=== PATIENT | male | born 1940 | race Caucasian/White ===

== ENCOUNTER → 2019-01-24 | Outpatient (CLI) | payer MEDICARE, OTHER ==
--- NOTE | 2019-01-24 17:18 | CT ---
EXAMINATION TYPE: CT brain wo con DATE OF EXAM: 01/24/2019 HISTORY: Stat H/C Pt was hit by tree branch yesterday. Dizzy since CT DLP: 1147 mGycm. Automated Exposure Control for Dose Reduction was Utilized. TECHNIQUE: CT scan of the head is performed without contrast. COMPARISON: None. FINDINGS: There is no acute intracranial hemorrhage or midline shift identified. There is diffuse v entricular and sulcal prominence consistent with diffuse age-related cerebral atrophy. There is low- attenuation in the periventricular white matter consistent with chronic small vessel ischemic change. The globes are intact and the visualized sinuses are clear. The calvarium is intact. No suspiciou s opacification mastoid air cells is present. IMPRESSION: No acute intracranial hemorrhage or midline shift. There is moderate diffuse age-relate d cerebral atrophy and mild chronic small vessel ischemic change noted.
== END | disposition home or self-care (01) ==
LOC: RADCTMAIN 16:14
PROVIDERS: ATTEND Internal Medicine
DX: G31.1 Senile degeneration of brain, not elsewhere classified (principal); I67.82 Cerebral ischemia; Z79.01 Long term (current) use of anticoagulants
CPT/HCPCS: 70450

== ENCOUNTER → 2019-06-13 | Outpatient (CLI) | payer MEDICARE, OTHER ==
[2019-06-13 13:31] LABS: Potassium 4.9 mmol/L (3.5-5.1)
[2019-06-13 13:34] LABS: HCT 52.2 % (39.0-53.0); HGB 17.2 gm/dL (13.0-17.5); MCH 33.1 pg (25.0-35.0); MCHC 32.9 g/dL (31.0-37.0); MCV 100.8 fL (80.0-100.0); Macrocytosis Slight; Platelet Count 153 k/uL (150-450); RBC 5.18 m/uL (4.30-5.90); RDW 13.7 % (11.5-15.5); WBC 6.5 k/uL (3.8-10.6)
== END | disposition home or self-care (01) ==
LOC: LABPAT 12:10
PROVIDERS: ATTEND Internal Medicine Interventional Cardiology
DX: Z01.812 Encounter for preprocedural laboratory examination (principal); I25.10 Atherosclerotic heart disease of native coronary artery without angina pectoris
CPT/HCPCS: 36415; 80051; 82565; 84520; 85027

== ENCOUNTER 2019-06-14 09:02 | Day surgery (SDC) | payer MEDICARE, OTHER ==
[2019-06-10 10:12] VITALS: BMI 30.4
[~2019-06-14 09:02] MED LIST: ALPRAZolam 0.25 MG TAB PO PRN; ALPRAZolam 0.5 MG TAB PO PRN; ASPIRIN 325 MG TAB PO STA; ATORVASTATIN 80 MG TAB PO STA; NITROGLYCERIN SL TABS 0.4 MG TAB SUBLINGUAL PRN; SODIUM CHLORIDE 0.9% 1,000 ML in EMPTY BAG 1 BAG IV ONE
[2019-06-14 09:33] VITALS: RESP 16; TEMP 97.9
[2019-06-14] MEDS ORDERED: SODIUM CHLORIDE 0.9% 1,000 ML IV ONE (09:42)
[2019-06-14 10:13] LABS: INR 1.4 (<1.2); Prothrombin Time 14.5 sec (9.0-12.0)
[2019-06-14] MEDS ORDERED: HEPARIN SODIUM 1,000 UN/ML (10ML VL) ONE (11:53)
[2019-06-14] MEDS ORDERED: LIDOCAINE 1% INJ 10MG/ML (20 ML MDV) ONE (11:53)
[2019-06-14] MEDS ORDERED: VERAPAMIL 2.5 MG/ML 2 ML AMP ONE (11:53)
[2019-06-14] MEDS ORDERED: MIDAZOLAM 2 MG/2 ML VIAL IVP ONE (12:00)
[2019-06-14] MEDS ORDERED: LIDOCAINE 1% INJ 10MG/ML (20 ML MDV) SQ ONE (12:04)
[2019-06-14] MEDS: VERAPAMIL SYRINGE (5 MG/10 ML) INTRAARTER ONE ×2 (12:08→12:20)
[2019-06-14] MEDS ORDERED: HEPARIN SODIUM 1,000 UN/ML (10ML VL) IV ONE (12:13)
[2019-06-14] MEDS ORDERED: IOPAMIDOL-370 100ML BTL INJ ONE (12:20)
[2019-06-14] MEDS ORDERED: SODIUM CHLORIDE 0.9% 1,000 ML IV SCH (12:30)
--- NOTE | 2019-06-14 13:26 | CC ---
CARDIAC CATHETERIZATION REPORT DATE OF SERVICE: 06/14/2019 PROCEDURE: Left heart catheterization and coronary angiography. PERFORMED BY: Dr. Maria D Reyes. ANESTHESIA: Moderate conscious sedation time was 22 minutes. CLINICAL INFORMATION: Mr. Price is a 78-year-old gentleman with a known history of CAD as well as chronic atrial fib and some cardiomyopathy type picture. His ejection fraction in the range of 45% with a global decrease in contractility. Some of this may be related to alcohol use. He had stenting of mid LAD performed in 2003 with a bare metal stent. Because of increasing symptoms of angina and equivocal stress test with some inferior defect, he was advised coronary angiography after due discussion regarding risks, benefits, and options. PROCEDURE NOTE: Under local anesthesia and strict aseptic precautions, a 6-Divehi introducer was placed in the right radial artery. Using a JL3.5 and JR4 catheter, I performed coronary angiography and the same catheter was used to check LV pressures. LV gram was not performed. The sheath was taken out and TR band applied as per protocol with good saturation of fingers of the right hand. CARDIAC CATHETERIZATION FINDINGS: The left ventricle end-diastolic pressure was about 16 mmHg without any gradient across aortic valve. CORONARY ANGIOGRAPHY FINDINGS: RIGHT CORONARY ARTERY: Technically a dominant vessel that has about a 35% to 40% narrowing in the midportion. No other significant disease. It is smooth narrowing. Distally, it bifurcates into PDA and PLV, both of which supply a sizable amount of myocardium. No significant disease in the dominant RCA. LEFT MAIN CORONARY ARTERY: Short patent disease-free vessel that bifurcates into LAD and circumflex. LEFT ANTERIOR DESCENDING CORONARY ARTERY: This vessel has a stent in the proximal portion just after the first septal branch. The vessel then trifurcates into 3 different branches. No significant disease in the LAD. Stented segment is widely patent with remarkably good flow. LEFT POSTERIOR CIRCUMFLEX CORONARY ARTERY: Technically nondominant vessel gives off a single first obtuse marginal that runs laterally and then the vessel runs in the AV groove and gives of secondary branches. There are minor irregularities of no more than 30%. Nondominant circumflex is free of significant disease. LV-gram was not performed. FINAL IMPRESSION: This patient has a right dominant system, 40% mid RCA disease, smooth narrowing, large vessel, large caliber and distribution. No other significant disease. Elevated filling pressures at 16 mmHg without any gradient across aortic valve. Left system has minor irregularities and the previously stented proximal/mid LAD is widely patent with remarkably good flow. A 30% circumflex disease, nondominant vessel. RECOMMENDATIONS: I am recommending continued medical therapy with risk factor modification. Findings were discussed with the patient and . OSCAR / SINDHU: [id number] /
[2019-06-14 17:07] VITALS: BP 136/75; PULSE 50
== END 2019-06-14 18:10 | disposition home or self-care (01) ==
LOC: CATHCVL 09:02
PROVIDERS: ATTEND Internal Medicine Interventional Cardiology
DX: I25.10 Atherosclerotic heart disease of native coronary artery without angina pectoris (principal); I48.20 Chronic atrial fibrillation, unspecified; I42.0 Dilated cardiomyopathy; I27.20 Pulmonary hypertension, unspecified; I10 Essential (primary) hypertension; E78.00 Pure hypercholesterolemia, unspecified; G47.33 Obstructive sleep apnea (adult) (pediatric); E78.5 Hyperlipidemia, unspecified; J44.9 Chronic obstructive pulmonary disease, unspecified; F10.20 Alcohol dependence, uncomplicated; Z87.891 Personal history of nicotine dependence; Z79.01 Long term (current) use of anticoagulants; Z79.899 Other long term (current) drug therapy; Z99.89 Dependence on other enabling machines and devices; Z95.5 Presence of coronary angioplasty implant and graft
CPT/HCPCS: 93458; 85610; C1769 ×2; C1894; J2250; J2001; J1644; Q9967

== ENCOUNTER → 2020-03-01 | Outpatient (CLI) | payer MEDICARE, OTHER ==
--- NOTE | 2020-03-01 17:43 | XR ---
EXAMINATION: XR chest 2V DATE AND TIME: 03/01/2020 4:52 PM CLINICAL INDICATION: PHH; R06.02 TECHNIQUE: Departmental protocol COMPARISON: None FINDINGS: The lungs are negative for definite acute findings. There is a subtle findings suggesting b ibasilar coarse reticulation throughout the lung bases; this subtle finding likely represents chronic interstitial lung change. The pleural spaces are negative. The cardiac silhouette is borderline enlarged. The remainder of the mediastinal silhouette is unremar kable. The skeletal structures and soft tissues are negative for acute findings. IMPRESSION: No acute radiographic process; should symptoms persist would suggest consideration of follow-up imagi ng assessment.
== END | disposition home or self-care (01) ==
LOC: RAD 16:31
PROVIDERS: ATTEND Internal Medicine
DX: R06.02 Shortness of breath (principal)
CPT/HCPCS: 71046

== ENCOUNTER → 2020-03-02 | Outpatient (CLI) | payer MEDICARE, OTHER | END | disposition home or self-care (01) | LOC: LABWHC1 08:46 | PROVIDERS: ATTEND Internal Medicine | DX: R06.02 Shortness of breath (principal) | CPT/HCPCS: U0003; C9803 ==

== ENCOUNTER → 2020-11-23 | Outpatient (CLI) | payer MEDICARE, OTHER ==
--- NOTE | 2020-11-23 16:25 | US ---
EXAMINATION TYPE: US carotid duplex BILAT DATE OF EXAM: 11/23/2020 COMPARISON: NONE CLINICAL HISTORY: R42 light-headed. Dizziness EXAM MEASUREMENTS: RIGHT: Peak Systolic Velocity (PSV) cm/sec ----- Right CCA: 101.1 ----- Right ICA: 130.2 ----- Right ECA: 127.0 ICA/CCA ratio: 1.3 RIGHT: End Diastole cm/sec ----- Right CCA: 20.4 ----- Right ICA: 17.1 ----- Right ECA: 13.9 LEFT: Peak Systolic Velocity (PSV) cm/sec ----- Left CCA: 136.6 ----- Left ICA: 118.9 ----- Left ECA: 123.7 ICA/CCA ratio: 0.9 LEFT: End Diastole cm/sec ----- Left CCA: 12.3 ----- Left ICA: 28.4 ----- Left ECA: 15.5 VERTEBRALS (direction of flow): Right Vertebral: Antegrade Left Vertebral: Antegrade Rhythm: Arrhythmia There is mild atherosclerotic plaque within the common carotid artery bifurcation and proximal internet sales representative al carotid artery on the right. There is mild atherosclerotic calcification of the left common caroti d artery bifurcation and left internal carotid artery. IMPRESSION: 1. Right: 50-69% stenosis of the right internal carotid artery. There is mild atherosclerotic plaque at the common carotid artery bifurcation and proximal internal carotid artery on the right. This is l ikely on the lower end of this range. 2. Left: Less than 50% stenosis of the left internal carotid artery is seen. There is mild atheroscle rotic plaque of the left common carotid artery bifurcation and left internal carotid artery. Criteria for Assigning % of Stenosis / Diameter reduction (Estimation based on the indirect measurements of the internal carotid artery velocities (ICA PSV). 1. Normal (no stenosis)=ICA PSV < 125 cm/s: ratio < 2.0: ICA EDV<40 cm/s. 2. Less than 50% stenosis=ICA PSV < 125 cm/s: ratio < 2.0: ICA EDV<40 cm/s. 3. 50 to 69% stenosis=ICA PSV of 125 to 230 cm/s: ration 2.0 ? 4.0: ICA EDV 40-100 cm/s. 4. Greater than 70% stenosis to near occlusion= ICA PSV > 230 cm/s: ratio > 4.0: ICA EDV > 100 cm/s. 5. Near occlusion= ICA PSV velocities may be low or undetectable: variable ratio and ICA EDV. 6. Total occlusion=unable to detect flow.
== END | disposition home or self-care (01) ==
LOC: RADUSWWP 15:13
PROVIDERS: ATTEND Internal Medicine
DX: I65.23 Occlusion and stenosis of bilateral carotid arteries (principal)
CPT/HCPCS: 93880

== ENCOUNTER → 2021-05-22 | Outpatient (CLI) | payer MEDICARE, OTHER ==
--- NOTE | 2021-05-23 07:57 | XR ---
EXAMINATION TYPE: XR ankle complete RT DATE OF EXAM: 05/22/2021 COMPARISON: NONE HISTORY: Pain TECHNIQUE: Frontal, lateral and oblique images of the right ankle are obtained. COMPARISON: None. FINDINGS: There is no acute fracture/dislocation evident. The joint spaces appear within normal rodas its. The overlying soft tissue appears unremarkable. IMPRESSION: There is no acute fracture or dislocation seen.
--- NOTE | 2021-05-23 07:58 | XR ---
EXAMINATION TYPE: XR foot complete RT DATE OF EXAM: 05/22/2021 CLINICAL HISTORY: pain TECHNIQUE: Frontal, lateral and oblique images of the right foot are obtained. COMPARISON: None. FINDINGS: There is no acute fracture/dislocation evident. The joint spaces appear within normal rodsa its. The overlying soft tissue appears unremarkable. IMPRESSION: There is no acute fracture or dislocation. ICD 10 NO FRACTURE, INITIAL EVALUATION
--- NOTE | 2021-05-23 07:58 | XR ---
EXAMINATION TYPE: XR tibia fibula RT DATE OF EXAM: 05/22/2021 CLINICAL HISTORY: pain TECHNIQUE: AP and lateral images of the right tibia and fibula are obtained. COMPARISON: None. FINDINGS: There is no acute fracture/dislocation evident. The joint spaces appear within normal rodas its. The overlying soft tissue appears unremarkable. IMPRESSION: There is no acute fracture or dislocation seen. ICD 10 NO FRACTURE, INITIAL EVALUATION
--- NOTE | 2021-05-23 08:10 | XR ---
EXAMINATION TYPE: XR knee 4V RT DATE OF EXAM: 05/22/2021 CLINICAL HISTORY: pain TECHNIQUE: Three views of the right knee are obtained. Patellar sunrise views also submitted. COMPARISON: None. FINDINGS: There is no acute fracture/dislocation. The tri-compartment joint spaces appear within no rmal limits. The overlying soft tissue appears unremarkable. IMPRESSION: There is no acute fracture or dislocation.ICD 10 NO FRACTURE, INITIAL EVALUATION
--- NOTE | 2021-05-23 08:11 | XR ---
EXAMINATION TYPE: XR toes RT DATE OF EXAM: 05/22/2021 COMPARISON: NONE HISTORY: Pain right fourth toe TECHNIQUE: 3 views of the right fourth toe are submitted. FINDINGS: There is a cortical irregularity at the base of the proximal phalanx right fourth toe felt to reflect fracture. IMPRESSION: As above
== END | disposition home or self-care (01) ==
LOC: RADXRMAIN 15:26
PROVIDERS: ATTEND Internal Medicine
DX: S92.511A Displaced fracture of proximal phalanx of right lesser toe(s), initial encounter for closed fracture (principal); M79.604 Pain in right leg; X58.XXXA Exposure to other specified factors, initial encounter

== ENCOUNTER → 2021-10-28 | Outpatient (CLI) | payer MEDICARE, OTHER ==
[2021-10-29 01:00] LABS: HCT 39.8 % (39.6-50.0); HGB 12.8 g/dL (13.0-17.0); MCH 32.2 pg (27.0-32.0); MCHC 32.2 g/dL (32.0-37.0); Mean Platelet Volume 10.8 fL (9.5-12.2); NRBC Per 100 WBC 0 /100 WBCS (0.0-0.0); Platelet Count 153 X 10*3/uL (140-440); RBC 3.98 X 10*6/uL (4.40-5.60); RDW 13.2 % (11.5-14.5); WBC 5.18 X 10*3/uL (4.50-10.00)
[2021-10-29 01:21] LABS: African American GFR (CKD) 72.1 (60.0-200.0); Anion Gap 11.7 mmol/L (10.00-18.00); Blood Urea Nitrogen 20.3 mg/dL (9.0-27.0); Carbon Dioxide 21.3 mmol/L (20.0-27.5); Non-African American GFR(CKD) 62.2 (60.0-200.0); Potassium 4.2 mmol/L (3.5-5.5)
== END | disposition home or self-care (01) ==
LOC: LABPAT 15:34
PROVIDERS: ATTEND Internal Medicine Interventional Cardiology
DX: Z01.812 Encounter for preprocedural laboratory examination (principal); I25.10 Atherosclerotic heart disease of native coronary artery without angina pectoris
CPT/HCPCS: 80051; 82565; 84520; 85027

== ENCOUNTER → 2021-10-30 | Day surgery (SDC) | payer MEDICARE, OTHER ==
[2021-10-29 10:16] VITALS: BMI 30.6
[~2021-10-30] MED LIST changes: +ASPIRIN 325 MG TAB PO ONE; -ASPIRIN 325 MG TAB PO STA; +ATORVASTATIN 10 MG TAB PO SCH; +ATORVASTATIN 80 MG TAB PO ONE; -ATORVASTATIN 80 MG TAB PO STA; +CYANOCOBALAMIN 500 MCG TAB PO SCH; +FUROSEMIDE 20 MG TAB PO PRN; +HEPARIN SODIUM 1,000 UN/ML (10ML VL) ONE; +HEPARIN SODIUM,PORCINE 10,000 UNIT in SODIUM CHLORIDE 0.9% 1,000 ML IRRIGATION PRN; +HEPARIN SODIUM,PORCINE 2,500 UNIT in SODIUM CHLORIDE 0.9% 250 ML IRRIGATION PRN; +IOPAMIDOL-370 100ML BTL INJ ONE; +LIDOCAINE 1% INJ 10MG/ML (20 ML MDV) SQ ONE; +LIDOCAINE 1% PF 10 MG/ML (5 ML AMP) SQ ONE; +METOPROLOL TARTRATE 25 MG TAB PO SCH; +MIDAZOLAM 2 MG/2 ML VIAL IV ONE; +MULTIVITAMINS, THERA 1 EACH TAB PO SCH; +NITROGLYCERIN 1000MCG/10ML SYRINGE INTRACORON ONE; +RX INFO: IV CONTRAST WAS GIVEN 1 EACH MISC MISCELLANE PRN; +SODIUM CHLORIDE 0.9% 1,000 ML IV ONE; +SODIUM CHLORIDE 0.9% 1,000 ML IV SCH; -SODIUM CHLORIDE 0.9% 1,000 ML in EMPTY BAG 1 BAG IV ONE; +SODIUM CHLORIDE 0.9% 1,000 ML in EMPTY BAG 1 BAG IV SCH; +THIAMINE 100 MG TAB PO SCH; +VERAPAMIL 2.5 MG/ML 2 ML AMP ONE; +VIAGRA PO PRN; +WARFARIN 2.5 MG TAB PO SCH; +lisinopriL 10 MG TAB PO SCH
[2021-10-30 09:27] VITALS: TEMP 97.8
[2021-10-30 09:51] LABS: INR 1.5 (<1.2); Prothrombin Time 15.3 sec (9.0-12.0)
--- NOTE | 2021-10-30 12:19 | CC ---
CARDIAC CATHETERIZATION REPORT DATE OF SERVICE: 10/30/2021. PROCEDURE: 1. Left heart catheterization and coronary angiography. 2. IFR measurement of distal RCA lesion. PERFORMED BY: Dr. Maria D Reyes. Moderate conscious sedation time was 45 minutes. Patient was administered Versed. Oxygen saturation, hemodynamics and EKG were monitored closely. CLINICAL INFORMATION: Mr. Israel Price is an 81-year-old gentleman with a known history of CAD, prior LAD PCI in 2004 at [facility] that was patent in 2019. He has hypertension, hyperlipidemia, chronic atrial fibrillation, sleep apnea with CPAP. He has been having symptoms of dizziness, lightheadedness and chest tightness and pressure; increasing shortness of breath of late, raising the possibility of anginal equivalence. He was advised cardiac catheterization after due discussion regarding risks, benefits and options. PROCEDURE NOTE: Under strict aseptic precautions and local anesthesia, I attempted right radial access, but the pulse was rather feeble. I had difficulty threading the wire in and therefore I switched over to the femoral approach. Under strict aseptic precautions and local anesthesia, a 6-Honduran introducer was placed in the right femoral artery using a micropuncture needle technique. Standard Mars catheters were used to perform coronary angiography, and the same right catheter was used to check LV pressure, but LV gram was not performed. Following the coronary angiography, I noted that there was a borderline lesion of about 55% in the distal RCA before it bifurcated into PDA and PLV. This was a dominant RCA. I performed IFR of this using an Omni wire, and IFR was performed as per protocol; IFR was 0.97. Therefore no intervention was performed. The sheath was taken out and manual compression used to secure hemostasis. CARDIAC CATHETERIZATION FINDINGS: The left ventricular end-diastolic pressure was about 12 to 13 mmHg without any gradient across the aortic valve. CORONARY ANGIOGRAPHY FINDINGS: RIGHT CORONARY ARTERY: Dominant vessel. No significant disease in the proximal and mid portion. Distally before bifurcation there is a 55% narrowing, after which the vessel bifurcates into a larger PLV and smaller PDA, both of which supply a sizable amount of myocardium. PDA has mild 30% to 40% disease. Distal RCA has about a 50% to 55% narrowing. LEFT MAIN CORONARY ARTERY: Short, patent disease-free vessel that bifurcates into LAD and circumflex. No significant disease in the left main. LEFT ANTERIOR DESCENDING CORONARY ARTERY: Good-caliber vessel has a proximal/mid stent that is widely patent. Beyond the stent it bifurcates into diagonals and continues as an LAD and also small-caliber vessels. Entire LAD system has minor diffuse irregularities, but the stented segment is widely patent with good flow. Compared to the previous images from 2019, no significant change. LEFT POSTERIOR CIRCUMFLEX CORONARY ARTERY: Nondominant vessel gives off a single large obtuse marginal and continues in the AV groove as a posterolateral branch. No significant disease in the circumflex system other than minor irregularities of less than 30%. LEFT VENTRICULOGRAM: Left ventriculogram was not performed. IFR measurement was performed using a standard protocol with a 6-Honduran guide catheter after giving 4000 units of heparin and intracoronary nitroglycerin. IFR was 0.97. No intervention was performed on the distal RCA lesion. FINAL IMPRESSION: This patient has a right-dominant system, a 55% borderline lesion with a negative FFR in RCA. The left main, LAD and circumflex are free of significant disease. Previously stented mid LAD is widely patent with good flow. Filling pressures are normal. There is no gradient. RECOMMENDATIONS: Continued medical therapy with risk factor modification is advised. Advised smoking cessation. Same medical regimen and Coumadin will be resumed tomorrow. MMODL / IJN: [id number] /
[2021-10-30 16:53] VITALS: BP 142/78
[2021-10-30 17:40] VITALS: PULSE 79; RESP 22
== END ==
LOC: CATHCVL 08:36
PROVIDERS: ATTEND Internal Medicine Interventional Cardiology
DX: I25.10 Atherosclerotic heart disease of native coronary artery without angina pectoris (principal); I48.19 Other persistent atrial fibrillation; I10 Essential (primary) hypertension; G47.33 Obstructive sleep apnea (adult) (pediatric); E78.5 Hyperlipidemia, unspecified; H46.9 Unspecified optic neuritis; G25.0 Essential tremor; E78.00 Pure hypercholesterolemia, unspecified; I27.20 Pulmonary hypertension, unspecified; I42.0 Dilated cardiomyopathy; F10.20 Alcohol dependence, uncomplicated; Z20.822 Contact with and (suspected) exposure to COVID-19; Z95.5 Presence of coronary angioplasty implant and graft; Z79.01 Long term (current) use of anticoagulants; Z79.899 Other long term (current) drug therapy; Z87.891 Personal history of nicotine dependence
CPT/HCPCS: 93571; 93458; 85610; 87635; J2250; J2001 ×2; J1644; Q9967

== ENCOUNTER → 2021-12-26 | Outpatient (CLI) | payer MEDICARE, OTHER ==
--- NOTE | 2021-12-26 14:06 | US ---
EXAMINATION TYPE: US carotid duplex BILAT DATE OF EXAM: 12/26/2021 COMPARISON: 11/2020 CLINICAL HISTORY: I65.21 OCCLUSION AND STENOSIS OF RIGHT CAROTID ART. LIGHTHEADNESS EXAM MEASUREMENTS: RIGHT: Peak Systolic Velocity (PSV) cm/sec ----- Right CCA: 98.1 ----- Right ICA: 105.9 ----- Right ECA: 72.4 ICA/CCA ratio: 1.1 RIGHT: End Diastole cm/sec ----- Right CCA: 25.4 ----- Right ICA: 30.6 ----- Right ECA: 4.2 LEFT: Peak Systolic Velocity (PSV) cm/sec ----- Left CCA: 92.4 ----- Left ICA: 127.1 ----- Left ECA: 105.9 ICA/CCA ratio: 1.4 LEFT: End Diastole cm/sec ----- Left CCA: 17.2 ----- Left ICA: 33.9 ----- Left ECA: 11.2 VERTEBRALS (direction of flow): Right Vertebral: Antegrade Left Vertebral: Antegrade Rhythm: Normal NO SIGNIFICANT STENOSIS SEEN IMPRESSION: 1. Moderate stenosis of left internal carotid artery between 50 and 69%. 2. Mild narrowing of the right internal carotid artery of less than 50%. Criteria for Assigning % of Stenosis / Diameter reduction (Estimation based on the indirect measurements of the internal carotid artery velocities (ICA PSV). 1. Normal (no stenosis)=ICA PSV < 125 cm/s: ratio < 2.0: ICA EDV<40 cm/s. 2. Less than 50% stenosis=ICA PSV < 125 cm/s: ratio < 2.0: ICA EDV<40 cm/s. 3. 50 to 69% stenosis=ICA PSV of 125 to 230 cm/s: ration 2.0 ? 4.0: ICA EDV 40-100 cm/s. 4. Greater than 70% stenosis to near occlusion= ICA PSV > 230 cm/s: ratio > 4.0: ICA EDV > 100 cm/s. 5. Near occlusion= ICA PSV velocities may be low or undetectable: variable ratio and ICA EDV. 6. Total occlusion=unable to detect flow.
== END | disposition home or self-care (01) ==
LOC: RADUSWWP 12:25
PROVIDERS: ATTEND Internal Medicine
DX: I65.21 Occlusion and stenosis of right carotid artery (principal)
CPT/HCPCS: 93880

== ENCOUNTER → 2022-12-30 | Outpatient (CLI) | payer MEDICARE, OTHER ==
--- NOTE | 2022-12-30 13:23 | US ---
EXAMINATION TYPE: US carotid duplex BILAT DATE OF EXAM: 12/30/2022 COMPARISON: US 2021 CLINICAL INDICATION: Male, 82 years old with history of I65.21 STENOSIS OF RT CAROTID ARTERY; TECHNIQUE: Carotid duplex ultrasound examination. Indirect Doppler criteria was utilized. FINDINGS: EXAM MEASUREMENTS: RIGHT: Peak Systolic Velocity (PSV) cm/sec ----- Right CCA: 72.4 ----- Right ICA: 86.8 ----- Right ECA: 76.3 ICA/CCA ratio: 1.2 RIGHT: End Diastole cm/sec ----- Right CCA: 16.9 ----- Right ICA: 23.6 ----- Right ECA: 0.0 LEFT: Peak Systolic Velocity (PSV) cm/sec ----- Left CCA: 77.9 ----- Left ICA: 90.6 ----- Left ECA: 96.8 ICA/CCA ratio: 1.2 LEFT: End Diastole cm/sec ----- Left CCA: 14.5 ----- Left ICA: 22.6 ----- Left ECA: 0.0 VERTEBRALS (direction of flow): Right Vertebral: Antegrade Left Vertebral: Antegrade Rhythm: Arrhythmia No significant stenosis IMPRESSION: Less than 50% stenosis of the bilateral carotid bifurcations. Criteria for Assigning % of Stenosis / Diameter reduction (Estimation based on the indirect measurements of the internal carotid artery velocities (ICA PSV). 1. Normal (no stenosis)=ICA PSV < 125 cm/s: ratio < 2.0: ICA EDV<40 cm/s. 2. Less than 50% stenosis=ICA PSV < 125 cm/s: ratio < 2.0: ICA EDV<40 cm/s. 3. 50 to 69% stenosis=ICA PSV of 125 to 230 cm/s: ration 2.0 ? 4.0: ICA EDV 40-100 cm/s. 4. Greater than 70% stenosis to near occlusion= ICA PSV > 230 cm/s: ratio > 4.0: ICA EDV > 100 cm/s. 5. Near occlusion= ICA PSV velocities may be low or undetectable: variable ratio and ICA EDV. 6. Total occlusion=unable to detect flow.
--- NOTE | 2022-12-30 14:18 | US ---
EXAMINATION TYPE: US scrotum with doppler. Grayscale and color Doppler Duplex imaging performed of richa rock scrotum. DATE OF EXAM: 12/30/2022 COMPARISON: NONE CLINICAL INDICATION: Male, 82 years old with history of N50.3 EPIDIDYMAL CYST; Left testicular swelli ng EXAM MEASUREMENTS: TESTICLES: Right Testicle: Left Testicle: 4.2 x 2.1 x 2.8 cm EPIDIDYMIS HEAD: Right Epididymis: Left Epididymis: 1.6 cm, 2 small 0.4cm cysts Doppler performed to assess for testicular vascularity; good arterial color flow and waveform is seen left testicle. Unable to obtain venous flow within left testicle. Presence of hydroceles: left - 6.7cm Presence of varicoceles: Prominent vessels medial to left testicle Right: 2.7 x 1.2 x 2.3cm hypoechoic vascular area seen right scrotal sac, ? small right testicle IMPRESSION: 1. The left testis is visualized with appropriate arterial and spectral waveforms but not venous spe ctral waveforms. Correlate for early testicular torsion. 2. There is small left hydrocele. 3. The right testis is not definitively visualized, a hypoechoic structure of undetermined etiology is present in the right scrotal sac which could represent the testis. Correlate for any surgical hist ory and/or history of trauma/infection. 4. Small left varicocele also felt to be present.
== END | disposition home or self-care (01) ==
LOC: RADUSWWP 12:44
PROVIDERS: ATTEND Internal Medicine
DX: I65.23 Occlusion and stenosis of bilateral carotid arteries (principal); I86.1 Scrotal varices; N43.3 Hydrocele, unspecified; N50.3 Cyst of epididymis
CPT/HCPCS: 76870; 93880; 93975

== ENCOUNTER → 2023-02-17 | Outpatient (CLI) | payer MEDICARE, OTHER ==
--- NOTE | 2023-02-17 13:05 | US ---
EXAMINATION TYPE: US scrotum with doppler. Grayscale and color Doppler Duplex imaging performed of t shweta scrotum. DATE OF EXAM: 02/17/2023 COMPARISON: US 2022 CLINICAL INDICATION: Male, 82 years old with history of N50.89 OTHER SPECIFIED DISORDERS OF THE MALE GENIT; EXAM MEASUREMENTS: TESTICLES: Right Testicle: Left Testicle: 4.3 x 2.2 x 3.3 cm EPIDIDYMIS HEAD: Right Epididymis: Left Epididymis: 1.5 cm, 2 small cysts Doppler performed to assess for testicular vascularity; good arterial color flow and waveforms are se en. Unable to obtain venous flow within bilateral testicles at this time Presence of hydroceles: left - 6.0cm with debris Presence of varicoceles: prominent vessels lateral to left testicle that increased with valsalva Right: 2.8 x 1.2 x 2.2cm hypoechoic vascular area seen right scrotal sac, ? small right testicle 2 small epididymal head cysts on the left. IMPRESSION: 1. No evidence for left testicular torsion. 2. Moderate size left hydrocele with internal debris. 3. Left-sided varicocele. 4. There is redemonstration of a 2.8 cm heterogenous hypoechoic structure within the right scrotal s ac which could represent an atrophic testicle. This does demonstrate internal color flow.
== END | disposition home or self-care (01) ==
LOC: RADUSWWP 12:02
PROVIDERS: ATTEND Urology
DX: N50.89 Other specified disorders of the male genital organs (principal); N43.3 Hydrocele, unspecified; I86.1 Scrotal varices
CPT/HCPCS: 76870; 93975

== ENCOUNTER → 2024-01-06 | Outpatient (CLI) | payer MEDICARE, OTHER ==
--- NOTE | 2024-01-06 16:15 | US ---
EXAMINATION TYPE: US carotid duplex BILAT DATE OF EXAM: 01/06/2024 COMPARISON: Carotid ultrasound 12/30/2022, 12/30/2022, 11/23/2020 CLINICAL INDICATION: Male, 83 years old with history of I65.21 STENOSOS CAROTID ARTERY; TECHNIQUE: Carotid duplex ultrasound examination. Indirect Doppler criteria was utilized. FINDINGS: EXAM MEASUREMENTS: RIGHT: Peak Systolic Velocity (PSV) cm/sec ----- Right CCA: 109 ----- Right ICA: 110 ----- Right ECA: 114 ICA/CCA ratio: 1.01 RIGHT: End Diastole cm/sec ----- Right CCA: 20.8 ----- Right ICA: 16.2 ----- Right ECA: 10.4 LEFT: Peak Systolic Velocity (PSV) cm/sec ----- Left CCA: 84.2 ----- Left ICA: 117 ----- Left ECA: 114 ICA/CCA ratio: 1.39 LEFT: End Diastole cm/sec ----- Left CCA: 18.3 ----- Left ICA: 26.4 ----- Left ECA: 2.93 VERTEBRALS (direction of flow): Right Vertebral: Antegrade Left Vertebral: Antegrade Rhythm: Arrhythmia [employer]IVER NOTES: No significant stenosis seen IMPRESSION: Less than 50% stenosis of the bilateral carotid bifurcations. Criteria for Assigning % of Stenosis / Diameter reduction (Estimation based on the indirect measurements of the internal carotid artery velocities (ICA PSV). 1. Normal (no stenosis)=ICA PSV < 125 cm/s: ratio < 2.0: ICA EDV<40 cm/s. 2. Less than 50% stenosis=ICA PSV < 125 cm/s: ratio < 2.0: ICA EDV<40 cm/s. 3. 50 to 69% stenosis=ICA PSV of 125 to 230 cm/s: ration 2.0 ? 4.0: ICA EDV 40-100 cm/s. 4. Greater than 70% stenosis to near occlusion= ICA PSV > 230 cm/s: ratio > 4.0: ICA EDV > 100 cm/s. 5. Near occlusion= ICA PSV velocities may be low or undetectable: variable ratio and ICA EDV. 6. Total occlusion=unable to detect flow.
== END | disposition home or self-care (01) ==
LOC: RADUSWWP 15:40
PROVIDERS: ATTEND Internal Medicine
DX: I65.23 Occlusion and stenosis of bilateral carotid arteries (principal)
CPT/HCPCS: 93880

== ENCOUNTER → 2024-04-27 | Outpatient (CLI) | payer MEDICARE, OTHER ==
--- NOTE | 2024-04-27 15:08 | US ---
EXAMINATION TYPE: US arterial LE single level DATE OF EXAM: 04/27/2024 2:20 PM CLINICAL INDICATION: Male, 83 years old with history of L97.212 NON-PRESSURE CHRONIC ULCER OF RIGHT C RIK W; rt calf ulcer History of: Smoker: prior Hypertension: Y Diabetic: N Hyperlipidemia: Y TIA/CVA: N Previous Vascular Surgery: N CAD: N MO: N Vascular Ulcers: N Claudication: N Gangrene: N Doppler Waveforms: Right: Biphasic waveforms within the right posterior tibial and dorsalis pedis arteries. Monophasic w aveforms within the digit. Left: Biphasic waveforms within the posterior tibial and dorsalis pedis arteries. Monophasic waveform s within the digit. Right Brachial Pressure: 123 Left Brachial Pressure: 113 Ankle-Brachial Indices: Right: 1.5 Left: 1.3 (Vessel hardening > 1.4; Normal 0.9 - 1.4, Moderate 0.7 - 0.9, Severe 0.5-0.7) FARRAH PRESSURES SUGGESTI VE OF VESSEL HARDENING Toe Brachial Indices: Right: NC Left: NC IMPRESSION: High ankle brachial indices suggesting vessel hardening. Monophasic waveforms identified within the bilateral digits suggesting at least mild distal peripheral arteriovascular disease. Brittney ining arterial waveforms are within normal limits. [facility], , 04/27/2024 3:06 PM
== END | disposition home or self-care (01) ==
LOC: RADUSWWP 13:45
PROVIDERS: ATTEND Thoracic Surgery (Cardiothoracic Vascular Surgery)
CPT/HCPCS: 93922

== ENCOUNTER → 2024-06-01 | Outpatient (CLI) | payer MEDICARE, OTHER ==
--- NOTE | 2024-06-02 08:14 | US ---
EXAMINATION TYPE: US carotid duplex BILAT DATE OF EXAM: 06/01/2024 COMPARISON: Most recent: 01/06/24 CLINICAL INDICATION: Male, 83 years old with history of [id number] STENOSIS OF RIGHT CAROTID ARTERY; steno sis Additional History: I65.- Occlusion/stenosis of specified precerebral artery, specified laterality TECHNIQUE: Grayscale, color Doppler and spectral Doppler evaluation of the bilateral carotid systems and vertebral arteries. Indirect Doppler criteria was utilized. FINDINGS: EXAM MEASUREMENTS: RIGHT: Peak Systolic Velocity (PSV) cm/sec ----- Right CCA: 116.0 ----- Right ICA: 105.6 ----- Right ECA: 109.5 ICA/CCA ratio: 0.9 RIGHT: End Diastole cm/sec ----- Right CCA: 7.2 ----- Right ICA: 15.0 ----- Right ECA: 7.3 LEFT: Peak Systolic Velocity (PSV) cm/sec ----- Left CCA: 102.6 ----- Left ICA: 134.0 ----- Left ECA: 107.9 ICA/CCA ratio: 1.3 LEFT: End Diastole cm/sec ----- Left CCA: 8.7 ----- Left ICA: 26.8 ----- Left ECA: 8.7 VERTEBRALS (direction of flow): Right Vertebral: Antegrade Left Vertebral: Antegrade Rhythm: Arrhythmia CELL STRIPPER NOTES: mild plaque seen in bilateral bulbs, no elevated velocities Color Doppler imaging shows patency with blood flow throughout the carotid artery. Spectral waveforms are within normal limits. IMPRESSION: No evidence for hemodynamically significant stenosis. Criteria for Assigning % of Stenosis / Diameter reduction (Estimation based on the indirect measurements of the internal carotid artery velocities (ICA PSV). 1. Normal (no stenosis)=ICA PSV < 125 cm/s: ratio < 2.0: ICA EDV<40 cm/s. 2. Less than 50% stenosis=ICA PSV < 125 cm/s: ratio < 2.0: ICA EDV<40 cm/s. 3. 50 to 69% stenosis=ICA PSV of 125 to 230 cm/s: ration 2.0 ? 4.0: ICA EDV 40-100 cm/s. 4. Greater than 70% stenosis to near occlusion= ICA PSV > 230 cm/s: ratio > 4.0: ICA EDV > 100 cm/s. 5. Near occlusion= ICA PSV velocities may be low or undetectable: variable ratio and ICA EDV. 6. Total occlusion=unable to detect flow. [facility], , 06/02/2024 8:12 AM
== END | disposition home or self-care (01) ==
LOC: RADUSWWP 13:18
PROVIDERS: ATTEND Internal Medicine
DX: I65.21 Occlusion and stenosis of right carotid artery (principal)
CPT/HCPCS: 93880

== ENCOUNTER 2025-01-14 00:32 | Inpatient (IN) | payer MEDICARE, OTHER ==
--- NOTE | 2025-01-14 01:12 | ED ---
Fall HPI - General Chief Complaint: Fall Stated Complaint: fall Time Seen by Provider: 01/14/25 00:50 Source: patient, family, RN notes reviewed Mode of arrival: wheelchair - History of Present Illness Initial Comments: This is an 84-year-old male with history including A-fib, COPD and hypertension presenting for fall with right hip pain (01/12) occurring at 2230 last night. Patient states he was walking around his car when he accidentally stepped on his shoe, falling onto his right side/hip with immediate pain afterwards. Patient states he is unable to ambulate due to the pain. Endorses pain radiating to right knee. Also endorses several superficial abrasions and skin tears on his hands and elbows. Denies striking head, loss of consciousness, headache, neck pain. Endorses use of Coumadin. MD Complaint: fall Onset/Timin -: hour(s) Time: 22:30 Fall From: standing When Fall Occurred: 1-3 hours [employer] Fall Witnessed: yes, by family Place Fall Occurred: street Loss of Consciousness: none Prolonged Down Time?: no Symptoms Prior to Fall: none Location: pelvis Severity scale (1-10): 7 Context: tripped/slipped Associated Symptoms: unable to walk - Related Data Home Medications Medication Instructions Recorded Confirmed Furosemide [Lasix] 20 mg PO DAILY PRN 06/10/19 10/30/21 Metoprolol Tartrate [Lopressor] 25 mg PO BID 06/10/19 10/30/21 Multivitamins, Thera [Multivitamin 1 tab PO DAILY 06/10/19 10/30/21 (formulary)] Simvastatin 20 mg PO DAILY 06/10/19 10/30/21 Viagra (Unknown Dose) 1 tab PO DIRECTED PRN 06/10/19 10/29/21 Warfarin [Coumadin] 2.5 mg PO SUTUWETHSA 06/10/19 10/29/21 lisinopriL [Zestril] 10 mg PO DAILY 06/10/19 10/29/21 Vitamin B-1 (Unknown Dose) 1 tab PO DAILY 10/29/21 10/30/21 Vitamin B-12 (Unknown Dose) 1 tab PO DAILY 10/29/21 10/30/21 Warfarin [Coumadin] 1.25 mg PO MOFR 10/29/21 10/30/21 Allergies Allergy/AdvReac Type Severity Reaction Status Date / Time No Known Allergies Allergy Verified 01/14/25 00:37 Review of Systems ROS Statement: Those systems with pertinent positive or pertinent negative responses have been documented in the HPI. ROS Other: All systems not noted in ROS Statement are negative. Past Medical History Past Medical History: Atrial Fibrillation, Asthma, Chest Pain / Angina, COPD, Hypertension, Prostate Disorder, Sleep Apnea/CPAP/BIPAP Additional Past Medical History / Comment(s): STATES MILD ASTHMA/COPD (NO RX)., DUODENOL ULCER (50 YRS AGO), HX BPH., USES C-PAP MACHINE., SEE CARDIOLOGY H & P. History of Any Multi-Drug Resistant Organisms: None Reported Past Surgical History: Heart Catheterization With Stent, Hernia Repair, Orthopedic Surgery Additional Past Surgical History / Comment(s): JAZZY DUPUYTRENS CONTRACTURE HAND., MORTONS NEUROMA JAZZY FEET., INGUINAL HERNIA Past Anesthesia/Blood Transfusion Reactions: No Reported Reaction, Motion Sickness Date of Last Stent Placement:: 2003 Past Psychological History: No Psychological Hx Reported Past Alcohol Use History: Daily - Past Family History Father Family Medical History: Cancer Additional Family Medical History / Comment(s): TESTICULAR CANCER. Brother(s) Family Medical History: Cancer Additional Family Medical History / Comment(s): PROSTATE CANCER. General Exam Limitations: no limitations General appearance: alert, in no apparent distress Head exam: Present: atraumatic, normocephalic, normal inspection, other (Negative Waters sign) Eye exam: Present: normal appearance, PERRL, EOMI, other (Negative raccoon eyes). Absent: scleral icterus, conjunctival injection, periorbital swelling Pupils: Present: normal accommodation ENT exam: Present: normal exam, mucous membranes moist, other (Negative bleeding/CSF from ears or nose) Neck exam: Present: normal inspection. Absent: tenderness, meningismus, lymphadenopathy Respiratory exam: Present: normal lung sounds bilaterally. Absent: respiratory distress, wheezes, rales, rhonchi, stridor, accessory muscle use, decreased breath sounds, prolonged expiratory Cardiovascular Exam: Present: bradycardia, irregular rhythm, normal heart sounds. Absent: systolic murmur, diastolic murmur, rubs, gallop, clicks GI/Abdominal exam: Present: soft, normal bowel sounds. Absent: distended, tenderness, guarding, rebound, rigid Extremities exam: Present: normal inspection, full ROM, tenderness (Positive right hip, femur and knee TTP), normal capillary refill, pedal edema (Positive BLE pitting edema with stasis dermatitis), other (Distal RLE neurovascular and motor function intact. Dorsalis pedis pulse +1.). Absent: joint swelling, calf tenderness Back exam: Present: normal inspection. Absent: vertebral tenderness Neurological exam: Present: alert, oriented X3, CN II-XII intact Psychiatric exam: Present: normal affect, normal mood Skin exam: Present: warm, dry, intact, normal color, abrasion (Scattered solitary abrasion/skin tears noted on bilateral hands, bilateral elbows.). Absent: rash Course Vital Signs 01/14/25 00:34 Temperature 97.4 F L Pulse Rate 71 Respiratory 18 Rate Blood Pressure 148/75 O2 Sat by Pulse 93 L Oximetry Medical Decision Making - Medical Decision Making Was pt. sent in by a medical professional or institution (, PA, PILLOW AGENT, urgent care, hospital, or long-term...) When possible be specific @ -No Did you speak to anyone other than the patient for history (EMS, parent, family, police, friend...)? What history was obtained from this source @ -Family provided portion of HPI Did you review nursing and triage notes (agree or disagree)? Why? @ -I reviewed and agree with nursing and triage notes Were old charts reviewed (outside hosp., previous admission, EMS record, old EKG, old radiological studies, urgent care reports/EKG's, long-term records)? Report findings @ -No old charts were reviewed Differential Diagnosis (chest pain, altered mental status, abdominal pain women, abdominal pain men, vaginal bleeding, weakness, fever, dyspnea, syncope, headache, dizziness, GI bleed, back pain, seizure, CVA, palpatations, mental health, musculoskeletal)? @ -Differential Musculoskeletal Muscular strain, contusion, ligament sprain, fracture, arthritis, septic arthritis, bursitis, cellulitis, muscle spasm, nerve compression, DVT, arterial occlusion, herpes zoster, electrolyte abnormality, tumor.... This is not meant to be in all inclusive list EKG interpreted by me (3pts min.). @ -A-fib with slow ventricular response. RBBB, LAD and QT prolongation. No ST deviation or T wave inversion. Ventricular rate 58 bpm, QRS 156 ms, QTc 483 ms. X-rays interpreted by me (1pt min.). @ -None done CT interpreted by me (1pt min.). @ -None done U/S interpreted by me (1pt. min.). @ -None done What testing was considered but not performed or refused? (CT, X-rays, U/S, labs)? Why? @ -None What meds were considered but not given or refused? Why? @ -None Did you discuss the management of the patient with other professionals (professionals i.e. DrNasim, PA, PILLOW AGENT, lab, RT, psych nurse, clinical social work therapist, clinical staff pharmacist, teacher, founder chairman and chief creative officer, supervisor case loading)? Give summary @ -Spoke to Dr. Mijares who advised internal medicine consult. Was smoking cessation discussed for >3mins.? @ -No Was critical care preformed (if so, how long)? @ -No Were there social determinants of health that impacted care today? How? (Homelessness, low income, unemployed, alcoholism, drug addiction, transportation, low edu. Level, literacy, decrease access to med. care, [facility], rehab)? @ -No Was there de-escalation of care discussed even if they declined (Discuss DNR or withdrawal of care, Hospice)? DNR status @ -No What co-morbidities impacted this encounter? (DM, HTN, Smoking, COPD, CAD, Cancer, CVA, ARF, Chemo, Hep., AIDS, mental health diagnosis, sleep apnea, morbid obesity)? @ -None Was patient admitted / discharged? Hospital course, mention meds given and route, prescriptions, significant lab abnormalities, going to OR and other pertinent info. @ -Displaced right femoral neck fracture seen on x-ray. Patient notes pain relief with IV Dilaudid. Patient admitted to orthopedics for surgery. Discussed patient with Dr. Thompson. Undiagnosed new problem with uncertain prognosis? @ -No Drug Therapy requiring intensive monitoring for toxicity (Heparin, Nitro, Insulin, Cardizem)? @ -No Were any procedures done? @ -No Diagnosis/symptom? @ -Displaced right femoral neck fracture Acute, or Chronic, or Acute on Chronic? @ -Acute Uncomplicated (without systemic symptoms) or Complicated (systemic symptoms)? @ -Uncomplicated Side effects of treatment? @ -No Exacerbation, Progression, or Severe Exacerbation? @ -No Poses a threat to life or bodily function? How? (Chest pain, [place], [place], pneumonia, PE, COPD, DKA, ARF, appy, cholecystitis, CVA, Diverticulitis, Homicidal, Suicidal, threat to staff... and all critical care pts) @ -No - Lab Data Result diagrams: 01/14/25 03:24 01/14/25 03:24 Lab Results 01/14/25 01/14/25 Range/Units 03:24 03:24 WBC 10.11 H (4.50-10.00) 10*3/uL RBC 3.75 L (4.40-5.60) 10*6/uL Hgb 12.1 L (13.0-17.0) g/dL Hct 35.6 L (39.6-50.0) % MCV 94.9 (80.0-97.0) fL MCH 32.3 H (27.0-32.0) pg MCHC 34.0 (32.0-37.0) g/dL Plt Count 119 L (140-440) 10*3/uL MPV 9.7 (9.5-12.2) fL Immature Gran % (Auto) 0.4 % Neutrophils % 83.5 % Lymphocytes % 7.7 % Monocytes % 8.2 % Eosinophils % 0.1 % Basophils % 0.1 % Immature Gran # 0.04 (0.00-0.04) 10*3/uL Neutrophils # 8.44 H (1.80-7.70) 10*3/uL Lymphocytes # 0.78 L (0.90-5.00) 10*3/uL Monocytes # 0.83 (0.20-1.00) 10*3/uL Eosinophils # 0.01 L (0.04-0.35) 10*3/uL Basophils # 0.01 (0.00-0.10) 10*3/uL Sodium 139 (137-145) mmol/L Potassium 3.9 (3.5-5.1) mmol/L Chloride 108 H (98-107) mmol/L Carbon Dioxide 22 (22-30) mmol/L Anion Gap 9 mmol/L BUN 24 H (9-20) mg/dL Creatinine 0.90 (0.66-1.25) mg/dL Est GFR (CKD-EPI)AfAm 90 (>60 ml/min/1.73 sqM) Est GFR (CKD-EPI)NonAf 78 (>60 ml/min/1.73 sqM) Glucose 127 H (74-99) mg/dL Calcium 9.0 (8.4-10.2) mg/dL Total Bilirubin 0.9 (0.2-1.3) mg/dL AST 31 (17-59) U/L ALT 23 (4-49) U/L Alkaline Phosphatase 79 (38-126) U/L Total Protein 6.1 L (6.3-8.2) g/dL Albumin 3.9 (3.5-5.0) g/dL Disposition Clinical Impression: Displaced fracture of right femoral neck Disposition: ADMITTED IP TO THIS [facility] Condition: Fair Time of Disposition: 03:00 Decision Date: 01/14/25 Decision Time: 03:00
[2025-01-14] MEDS: MORPHINE SULFATE 4 MG/ML SYRINGE IM STA (01:15)
[2025-01-14] MEDS: MORPHINE SULFATE 4 MG/ML SYRINGE IVP STA (01:15)
[2025-01-14] MEDS: HYDROmorphone 1 MG/ML 1 ML SYRINGE IVP STA (03:03)
[2025-01-14] MEDS: HYDROmorphone 1 MG/ML 1 ML SYRINGE IM STA (03:08)
--- NOTE | 2025-01-14 03:49 | XR ---
EXAM: XR Right Femur, 2 Views CLINICAL HISTORY: Fall with significant right hip/leg pain TECHNIQUE: Frontal and lateral views of the right femur. COMPARISON: No relevant prior studies available. FINDINGS: Bones/joints: Acute impacted and superiorly displaced fracture through the right femoral neck. No dislocation of the femoral head relative to the acetabulum. No other fracture identified. Bone mineralization within normal limits. n. Soft tissues: Unremarkable. IMPRESSION: Acute impacted and superiorly displaced fracture through the right femoral neck.
--- NOTE | 2025-01-14 03:51 | XR ---
EXAM: XR Chest, 1 View CLINICAL HISTORY: FALL TECHNIQUE: Frontal view of the chest. COMPARISON: 03/01/2020. FINDINGS: Heart is enlarged. Pulmonary vessels are prominent consistent with pulmonary vascular congestion. Hypoventilation with left basilar vascular crowding. No definite infiltrate. No pleural effusion or pneumothorax. Degenerative changes of the thoracic spine and left shoulder. No definite fracture. IMPRESSION: Cardiomegaly. Pulmonary vascular congestion.
[2025-01-14] MEDS ORDERED: NALOXONE 0.4 MG/ML 1 ML VIAL IV PRN (04:03)
[2025-01-14] MEDS ORDERED: ONDANSETRON 4 MG/2 ML VIAL IVP PRN (04:03)
[2025-01-14] MEDS ORDERED: FUROSEMIDE 20 MG TAB PO PRN (04:04)
[2025-01-14 04:10] LABS: Basophils # (A) 0.01 10*3/uL (0.00-0.10); Basophils % (A) 0.1 %; Eosinophils # (A) 0.01 10*3/uL (0.04-0.35); Eosinophils % (A) 0.1 %; HCT 35.6 % (39.6-50.0); HGB 12.1 g/dL (13.0-17.0); Lymphocytes # (A) 0.78 10*3/uL (0.90-5.00); Lymphocytes % (A) 7.7 %; MCH 32.3 pg (27.0-32.0); MCHC 34.0 g/dL (32.0-37.0); MCV 94.9 fL (80.0-97.0); Monocytes # (A) 0.83 10*3/uL (0.20-1.00); Monocytes % (A) 8.2 %; Neutrophils # (A) 8.44 10*3/uL (1.80-7.70); Neutrophils % (A) 83.5 %; Platelet Count 119 10*3/uL (140-440); RBC 3.75 10*6/uL (4.40-5.60); RDW 14.6 % (11.5-14.5); WBC 10.11 10*3/uL (4.50-10.00)
[2025-01-14 04:20] LABS: ALT 23 U/L (4-49); AST 31 U/L (17-59); African American GFR (CKD) 90 (>60 ml/min/1.73 sqM); Albumin 3.9 g/dL (3.5-5.0); Alkaline Phosphatase 79 U/L (38-126); Anion Gap 9 mmol/L; Blood Urea Nitrogen 24 mg/dL (9-20); Calcium 9.0 mg/dL (8.4-10.2); Carbon Dioxide 22 mmol/L (22-30); Chloride 108 mmol/L (98-107); Glucose 127 mg/dL (74-99); Non-African American GFR(CKD) 78 (>60 ml/min/1.73 sqM); Potassium 3.9 mmol/L (3.5-5.1); Sodium 139 mmol/L (137-145); Total Protein 6.1 g/dL (6.3-8.2)
[2025-01-14 05:17] LABS: INR 2.3 (<1.2); Partial Thromboplastin Time 26.6 sec (22.0-30.0); Prothrombin Time 23.5 sec (10.0-12.5)
[2025-01-14] MEDS: ATORVASTATIN 10 MG TAB PO SCH (08:36)
[2025-01-14] MEDS: METOPROLOL TARTRATE 25 MG TAB PO SCH (08:36)
[2025-01-14] MEDS: HYDROmorphone 0.5 MG/0.5 ML SYRINGE IVP PRN (10:17)
--- NOTE | 2025-01-14 11:24 | P.HPOR ---
History of Present Illness H&P Date: 01/14/25 The patient is a very pleasant 84-year-old male with multiple medical problems including atrial fibrillation on Coumadin and COPD who is presently admitted under my care with a right hip fracture. The patient was seen at bedside this morning with his and son. According to the family the patient was walking out to his car when he lost his balance and fell injuring his right hip. He was brought to the emergency department where x-rays showed a displaced right hip fracture. He was admitted under my care. This morning the patient is complaining of isolated pain in his right hip. He denies any prior hip or thigh pain before his fall. The patient's son states that he does not get around well at baseline and has an unsteady gait. Past Medical History Past Medical History: Atrial Fibrillation, Asthma, Chest Pain / Angina, COPD, Hypertension, Prostate Disorder, Sleep Apnea/CPAP/BIPAP Additional Past Medical History / Comment(s): STATES MILD ASTHMA/COPD (NO RX)., DUODENOL ULCER (50 YRS AGO), HX BPH., USES C-PAP MACHINE., SEE CARDIOLOGY H & P. History of Any Multi-Drug Resistant Organisms: None Reported Past Surgical History: Heart Catheterization With Stent, Hernia Repair, Orthopedic Surgery Additional Past Surgical History / Comment(s): JAZZY DUPUYTRENS CONTRACTURE HAND., MORTONS NEUROMA JAZZY FEET., INGUINAL HERNIA Past Anesthesia/Blood Transfusion Reactions: No Reported Reaction, Motion Sickness Date of Last Stent Placement:: 2003 Past Psychological History: No Psychological Hx Reported Smoking Status: Former smoker Past Alcohol Use History: Daily Additional Past Alcohol Use History / Comment(s): QUIT SMOKING 1983 (35 YRS AGO), SMOKED 1 PPD, STARTED SMOKING AGE 15. DRINKS 1 DRINK DAILY (LIQUOR) Past Drug Use History: None Reported - Past Family History Father Family Medical History: Cancer Additional Family Medical History / Comment(s): TESTICULAR CANCER. Brother(s) Family Medical History: Cancer Additional Family Medical History / Comment(s): PROSTATE CANCER. Medications and Allergies Home Medications Medication Instructions Recorded Confirmed Type Furosemide [Lasix] 20 mg PO DAILY 06/10/19 01/14/25 History Multivitamins, Thera [Multivitamin 1 tab PO DAILY 06/10/19 01/14/25 History (formulary)] Simvastatin 20 mg PO HS 06/10/19 01/14/25 History Warfarin [Coumadin] 2.5 mg PO SUTUWETHFRSA@2100 06/10/19 01/14/25 History lisinopriL [Zestril] 10 mg PO HS 06/10/19 01/14/25 History Warfarin [Coumadin] 1.25 mg PO MO@2100 10/29/21 01/14/25 History Cyanocobalamin (Vitamin B-12) 1,000 mcg PO DAILY 01/14/25 01/14/25 History [Vitamin B-12] Metoprolol Tartrate [Lopressor] 12.5 mg PO BID 01/14/25 01/14/25 History Primidone [Mysoline] 50 mg PO HS 01/14/25 01/14/25 History Thiamine [Vitamin B-1] 100 mg PO DAILY 01/14/25 01/14/25 History Allergies Allergy/AdvReac Type Severity Reaction Status Date / Time No Known Allergies Allergy Verified 01/14/25 09:09 Physical Examination The patient is resting comfortably in his bed. He is alert and able to answer questions. He has multiple abrasions in his arms. His head is normocephalic and atraumatic. He demonstrates nonlabored breathing with symmetric chest expansion. His abdomen is soft and nontender. Other than abrasions over his arms his arms are otherwise without deformity and are nontender. His left lower extremity is without deformity and is nontender. He has pain with any attempts at passive range of motion of the right leg. The skin is intact over the anterior aspect of the right hip with no scars or lesions. His thigh is soft and compressible. Femoral nerve function is intact. He is able to actively plantarflex and dorsiflex his ankle and his toes. Results X-rays of the patient's right femur show a displaced subcapital femoral neck fracture - Labs Labs: Abnormal Lab Results - Last 24 Hours (Table) 01/14/25 01/14/25 01/14/25 Range/Units 03:24 03:24 04:44 WBC 10.11 H (4.50-10.00) 10*3/uL RBC 3.75 L (4.40-5.60) 10*6/uL Hgb 12.1 L (13.0-17.0) g/dL Hct 35.6 L (39.6-50.0) % MCH 32.3 H (27.0-32.0) pg Plt Count 119 L (140-440) 10*3/uL Neutrophils # 8.44 H (1.80-7.70) 10*3/uL Lymphocytes # 0.78 L (0.90-5.00) 10*3/uL Eosinophils # 0.01 L (0.04-0.35) 10*3/uL PT 23.5 H (10.0-12.5) sec INR 2.3 H (<1.2) Chloride 108 H (98-107) mmol/L BUN 24 H (9-20) mg/dL Glucose 127 H (74-99) mg/dL Total Protein 6.1 L (6.3-8.2) g/dL H & H 01/14/25 Range/Units 03:24 Hgb 12.1 L (13.0-17.0) g/dL Hct 35.6 L (39.6-50.0) % Coagulation 01/14/25 Range/Units 04:44 INR 2.3 H (<1.2) Result Diagrams: 01/14/25 03:24 01/14/25 03:24 Assessment and Plan Assessment: Ground-level fall with displaced right subcapital femoral neck fracture Atrial fibrillation on Coumadin, INR 2.3 COPD Plan: I met with the patient and his family this morning to discuss his right hip fracture and treatment options. Given the patient's age and medical issues my recommendation would be to perform a direct anterior cemented hip hemiarthroplasty to facilitate early mobilization and to regain his preinjury level of function. We discussed the procedure at length including the potential risks and complications. The patient's family understand that he is at an elevated risk of having a medical issue following surgery given his age and preoperative medical conditions. The patient's INR on presentation was 2.3. I spoke with internal medicine and they will work towards correcting this with a goal of 1.6 or less before surgery. We will tentatively plan on surgery tomorrow if his INR is below this level. We discussed the possibility of requiring several days until his INR normalizes and becomes safe for surgery. In the interim he is to be on bedrest and nonweightbearing on the right leg.
[2025-01-14] MEDS ORDERED: DEXTROSE 50% SYRINGE 50 ML IVP PRN ×2 (13:07)
--- NOTE | 2025-01-14 13:13 | P.CONS ---
History of Present Illness - Reason for Consult Consult date: 01/14/25 Requesting physician: Darryl Mijares - Chief Complaint med management, preoperative consultation - History of Present Illness 84-year-old male with medical history of CAD status post PCI, hypertension, hyperlipidemia, PAD, permanent atrial fibrillation on Coumadin presented for evaluation of hip pain after mechanical fall. Patient was found to have hip fracture. Medicine was consulted for preoperative clearance as well as medical management. Patient's only complaint at this time is pain. Patient tells me that in his usual state of health he is able to do gardening without any limitations such as chest pain or shortness of breath, these activities include hoeing, weeding. Patient does have chronic lower extremity edema and takes daily Lasix, but reports no orthopnea. He has denied angina. Patient's previous left heart catheterization in 2021 demonstrated evidence of PDA RCA stenosis to 55%, PDA stenosis of 30 to 40% which was medically managed. He follows outpatient with cardiology. He takes Coumadin for atrial fibrillation, nonvalvular, no history of mitral valve replacement or anti-phospholipid syndrome. His METS equivalent estimation is greater than 4. He is due to follow-up with vascular surgery due to carotid stenosis. However, he has not had any recent TIA nor does he have a history of CVA, muscular weakness, numbness of extremities. He has had general anesthesia in the past and has not had a poor reaction. His review of systems is otherwise negative for fevers, chills, nausea, vomiting, chest pain, palpitations, dyspnea, syncope, presyncope. Upon evaluation, patient is noted to be afebrile, 122/81, heart rate 66, 98% on room air. CBC is noted to demonstrate mild leukocytosis of 10.1, hemoglobin of 12.1, platelets of 119. Basic metabolic panel is unremarkable. Liver function tests are unremarkable. INR is 2.3. EKG shows atrial fibrillation with slow ventricular response, left axis deviation with right bundle branch block morphology, no evidence of ischemia. Chest x-ray demonstrates mild prominence of pulmonary vasculature consistent with mild pulmonary edema, technique is rotated and it is an AP film making cardiomegaly challenging to discern. Case was discussed with the orthopedic surgery team who request medical management of INR and other medical comorbidities in the perioperative period as well as preoperative clearance. All Systems reviewed and pertinent positives and negatives noted in HPI, all other symptoms are negative Gen: In NAD, non-toxic HEENT: normocephalic, atraumatic, hearing acuity is intant, mucous membranes moist CVS: perfusing all extremities well, bilateral 2+ pitting edema, Respiratory: symmetric chest expansion, no accessory muscle use, GI: soft, NTTP, ND, : no suprapubic tenderness, no CVA tenderness MSK/Derm: no rashes, cyanosis Neuro: CN II-XII intact, no motor weakness, Psych: cooperative, euthymic mood, judgment and insight is intact Labs and imaging as above Assessment/plan: Preoperative clearance Permanent atrial fibrillation Chronic diastolic heart failure CAD/PAD/hypertension/hyperlipidemia -NSQIP estimates a risk of MACE of 4.7%. This represents an elevated risk for intermediate risk surgery. Patient was counseled on this regarding his multiple comorbidities. That being said the benefits of operating on this patient to preserve ambulatory function, reduce risk of DVT and further debility as early as possible outweigh the risks. Patient will be optimized for surgery without need of further testing once INR is under 1.6. - Convert patient's p.o. Lasix to IV Lasix - Administer vitamin K 2.5 mg p.o. once, reassess INR, once it is below 1.6, recommend bridging to surgery with heparin drip due to elevated [id number] of 5 - Patient is amenable to initiating DOAC after the procedure - Patient will require preoperative BNP - Conservative fluid management in the perioperative period is recommended - Cardiology consultation appreciated - Target capillary blood glucose between 140-180 - Okay to resume patient's atorvastatin, metoprolol, primidone Thank you for this consult, we will continue to follow along and make rec ommendations along the way. Past Medical History Past Medical History: Atrial Fibrillation, Asthma, Chest Pain / Angina, COPD, Hypertension, Prostate Disorder, Sleep Apnea/CPAP/BIPAP Additional Past Medical History / Comment(s): STATES MILD ASTHMA/COPD (NO RX)., DUODENOL ULCER (50 YRS AGO), HX BPH., USES C-PAP MACHINE., SEE CARDIOLOGY H & P. History of Any Multi-Drug Resistant Organisms: None Reported Past Surgical History: Heart Catheterization With Stent, Hernia Repair, Orthope dic Surgery Additional Past Surgical History / Comment(s): JAZZY DUPUYTRENS CONTRACTURE HAND., MORTONS NEUROMA JAZZY FEET., INGUINAL HERNIA Past Anesthesia/Blood Transfusion Reactions: No Reported Reaction, Motion Sickness Date of Last Stent Placement:: 2003 Past Psychological History: No Psychological Hx Reported Smoking Status: Former smoker Past Alcohol Use History: Daily Additional Past Alcohol Use History / Comment(s): QUIT SMOKING 1983 (35 YRS AGO), SMOKED 1 PPD, STARTED SMOKING AGE 15. DRINKS 1 DRINK DAILY (LIQUOR) Past Drug Use History: None Reported - Past Family History Father Family Medical History: Cancer Additional Family Medical History / Comment(s): TESTICULAR CANCER. Brother(s) Family Medical History: Cancer Additional Family Medical History / Comment(s): PROSTATE CANCER. Medications and Allergies Home Medications Medication Instructions Recorded Confirmed Type Furosemide [Lasix] 20 mg PO DAILY 06/10/19 01/14/25 History Multivitamins, Thera [Multivitamin 1 tab PO DAILY 06/10/19 01/14/25 History (formulary)] Simvastatin 20 mg PO HS 06/10/19 01/14/25 History Warfarin [Coumadin] 2.5 mg PO SUTUWETHFRSA@2100 06/10/19 01/14/25 History lisinopriL [Zestril] 10 mg PO HS 06/10/19 01/14/25 History Warfarin [Coumadin] 1.25 mg PO MO@2100 10/29/21 01/14/25 History Cyanocobalamin (Vitamin B-12) 1,000 mcg PO DAILY 01/14/25 01/14/25 History [Vitamin B-12] Metoprolol Tartrate [Lopressor] 12.5 mg PO BID 01/14/25 01/14/25 History Primidone [Mysoline] 50 mg PO HS 01/14/25 01/14/25 History Thiamine [Vitamin B-1] 100 mg PO DAILY 01/14/25 01/14/25 History Allergies Allergy/AdvReac Type Severity Reaction Status Date / Time No Known Allergies Allergy Verified 01/14/25 09:09 Physical Exam Osteopathic Statement: *. No significant issues noted on an osteopathic structural exam other than those noted in the History and Physical/Consult. Vitals: Vital Signs Temp Pulse Pulse Resp BP BP Pulse Ox 01/14/25 10:35 97.6 F 80 16 144/62 89 L 01/14/25 08:37 66 18 122/81 98 01/14/25 07:24 59 L 18 132/62 99 01/14/25 06:51 71 18 132/58 97 01/14/25 04:45 74 18 109/57 97 01/14/25 00:34 97.4 F L 71 18 148/75 93 L Intake and Output 01/13/25 01/14/25 01/14/25 22:59 06:59 14:59 Output Total 600 600 Balance -600 -600 Output: Urine 600 600 Uretheral (Jay) 600 600 Other: Weight 89.811 kg 89.811 kg Results CBC & Chem 7: 01/14/25 03:24 01/14/25 03:24 Labs: Abnormal Lab Results - Last 24 Hours (Table) 01/14/25 01/14/25 01/14/25 Range/Units 03:24 03:24 04:44 WBC 10.11 H (4.50-10.00) 10*3/uL RBC 3.75 L (4.40-5.60) 10*6/uL Hgb 12.1 L (13.0-17.0) g/dL Hct 35.6 L (39.6-50.0) % MCH 32.3 H (27.0-32.0) pg Plt Count 119 L (140-440) 10*3/uL Neutrophils # 8.44 H (1.80-7.70) 10*3/uL Lymphocytes # 0.78 L (0.90-5.00) 10*3/uL Eosinophils # 0.01 L (0.04-0.35) 10*3/uL PT 23.5 H (10.0-12.5) sec INR 2.3 H (<1.2) Chloride 108 H (98-107) mmol/L BUN 24 H (9-20) mg/dL Glucose 127 H (74-99) mg/dL Total Protein 6.1 L (6.3-8.2) g/dL
[2025-01-14] MEDS: FUROSEMIDE 10 MG/ML 2 ML VIAL IV SCH (14:01)
[2025-01-14] MEDS: PHYTONADIONE ORAL 5 MG/5 ML ORAL.SYRG PO STA (14:01)
[2025-01-14 16:57] LABS: Glucose,Whole Blood 127 mg/dL (70-110)
[2025-01-14] MEDS: INSULIN LISPRO (HumaLOG) 100 UNIT/ML 10 mL VL SQ SCH (17:26)
[2025-01-14 20:50] LABS: Glucose,Whole Blood 123 mg/dL (70-110)
[2025-01-14] MEDS: PRIMIDONE 50 MG TAB PO SCH (20:52)
[2025-01-14] MEDS: METOPROLOL TARTRATE 12.5 MG TAB PO SCH (20:53)
[2025-01-14 21:00] LABS: INR 2.1 (<1.2); Prothrombin Time 21.5 sec (10.0-12.5)
[2025-01-15] MEDS: HYDROmorphone 1 MG/ML 1 ML SYRINGE IVP PRN (03:48)
[2025-01-15 03:50] LABS: INR 1.6 (<1.2); Prothrombin Time 16.9 sec (10.0-12.5)
[2025-01-15 06:41] LABS: Glucose,Whole Blood 134 mg/dL (70-110)
[2025-01-15] MEDS ORDERED: FUROSEMIDE 20 MG TAB PO SCH (09:00)
[2025-01-15] MEDS: THIAMINE 100 MG TAB PO SCH (09:03)
[2025-01-15] MEDS: CYANOCOBALAMIN 500 MCG TAB PO SCH (09:03)
[2025-01-15] MEDS ORDERED: WATER FOR INJECTION, STERILE 10 ML VIAL IV ONE (09:07)
[2025-01-15] MEDS ORDERED: VASOPRESSIN 20 UNIT/ML 1 ML VIAL ONE (09:07)
[2025-01-15] MEDS ORDERED: PROPOFOL 10 MG/ML 20 ML VIAL IV ONE (09:07)
[2025-01-15] MEDS ORDERED: ROCURONIUM 10 MG/ML (5 ML VIAL) IV ONE (09:07)
[2025-01-15] MEDS ORDERED: GLYCOPYRROLATE 0.2 MG/ML 2 ML VIAL ONE (09:07)
[2025-01-15] MEDS ORDERED: PHENYLEPHRINE-0.9% NACL SYG 1,000 MCG/10 ML SYRINGE ONE (09:07)
[2025-01-15] MEDS ORDERED: NEOSTIGMINE 1 MG/ML 10 ML VIAL ONE (09:07)
[2025-01-15] MEDS ORDERED: fentaNYL (PF) 50 MCG/ML 2 ML AMP ONE (09:07)
[2025-01-15] MEDS ORDERED: ONDANSETRON 4 MG/2 ML VIAL ONE (09:07)
[2025-01-15] MEDS ORDERED: SUCCINYLCHOLINE CHLORIDE 200 MG/10 ML VIAL IV ONE (09:07)
[2025-01-15] MEDS ORDERED: LIDOCAINE 1% INJ 10MG/ML (20 ML MDV) ONE ×2 (09:07)
[2025-01-15] MEDS: SODIUM CHLORIDE 0.9% 100 ML with ceFAZolin 2,000 MG IV ONE (09:12)
[2025-01-15] MEDS: LACTATED RINGERS 1,000 ML IV ONE (09:12)
[2025-01-15 09:27] LABS: Basophils # (A) 0.03 X 10*3/uL (0.00-0.10); Basophils % (A) 0.3 %; Eosinophils # (A) 0.08 X 10*3/uL (0.04-0.35); Eosinophils % (A) 0.9 %; HCT 39.3 % (39.6-50.0); HGB 12.8 g/dL (13.0-17.0); Immature Grans, Automated 0.40 %; Lymphocytes # (A) 0.88 X 10*3/uL (0.90-5.00); Lymphocytes % (A) 9.6 %; MCH 31.4 pg (27.0-32.0); MCHC 32.6 g/dL (32.0-37.0); MCV 96.6 FL (80.0-97.0); Monocytes # (A) 0.85 X 10*3/uL (0.20-1.00); Monocytes % (A) 9.2 %; NRBC Per 100 WBC 0 X 10*3/uL (0.00-0.01); Neutrophils # (A) 7.31 X 10*3/uL (1.80-7.70); Neutrophils % (A) 79.6 %; Platelet Count 113 X 10*3/uL (140-440); RBC 4.07 X 10*6/uL (4.40-5.60); RDW 15.4 % (11.5-14.5); WBC 9.19 X 10*3/uL (4.50-10.00)
[2025-01-15 10:12] LABS: NT-Pro-B-Type Natriuretic Pept 8141 pg/mL (0-450)
[2025-01-15] MEDS: ROPIVACAINE 5 MG/ML 30 ML VIAL MISCELLANE ONE (10:30)
[2025-01-15 10:36] LABS: Anion Gap 14.80 mmol/L (4.00-12.00); BUN/Creat Ratio 19.30 Ratio (12.00-20.00); Blood Urea Nitrogen 19.3 mg/dL (9.0-27.0); Calcium 8.2 mg/dL (8.7-10.3); Carbon Dioxide 19.2 mmol/L (21.6-31.8); Chloride 108 mmol/L (96-109); Glucose 126 mg/dL (70-110); Magnesium 2.0 mg/dL (1.5-2.4); Potassium 4.4 mmol/L (3.5-5.5); Sodium 142 mmol/L (135-145)
[2025-01-15] MEDS ORDERED: NALOXONE 0.4 MG/ML 1 ML VIAL IV PRN (10:44)
[2025-01-15] MEDS ORDERED: diazePAM 5 MG TAB PO PRN (10:44)
[2025-01-15] MEDS ORDERED: HYDROmorphone 0.5 MG/0.5 ML SYRINGE IVP PRN ×2 (10:44)
[2025-01-15] MEDS ORDERED: MAGNESIUM HYDROXIDE 2,400 MG/30 ML CUP PO PRN (10:44)
--- NOTE | 2025-01-15 10:44 | P.OP ---
Date of Procedure: 01/15/25 Preoperative Diagnosis: 1. Displaced right subcapital femoral neck fracture 2. Coronary artery disease status post PCI 3. PAD 4. Atrial fibrillation on Coumadin Postoperative Diagnosis: Same Procedure(s) Performed: Right direct anterior hip hemiarthroplasty Implants: Denice Accolade C size #5 standard offset femoral stem, bipolar 52 mm outer diameter head, 28 mm inner diameter head with a +0 mm neck Anesthesia: MARTIN, regional Surgeon: Darryl Mijares Cloth Sponger #1: Horacio Loyd Estimated Blood Loss (ml): 200 IV fluids (ml): 800 Pathology: none sent Condition: stable Disposition: PACU Indications for Procedure: I met with the patient and their family to discuss treatment options. The patient has a displaced femoral neck fracture and based on their age, activity level, and medical comorbidities I recommended a hip hemiarthroplasty to facilitate early mobilization. My recommendation was to perform the hemiarthroplasty through a direct anterior approach to help lower the risk of di slocation and improve postoperative recovery and use cemented fixation of the femoral component to reduce the risk of fracture and postoperative thigh pain. We discussed the potential risks and complications of a hemiarthroplasty for displaced femoral neck fracture at length. Risks discussed include are certainly not limited to risks from anesthesia, superficial infection requiring local wound care and possibly surgical debridement, deep periprosthetic joint infection and the treatment for this, damage to local blood vessels or nerves particularly the lateral femoral cutaneous nerve, intraoperative fracture, postoperative periprosthetic fracture, leg length discrepancy, hip dislocation, aseptic loosening, groin pain, thigh pain, progression of arthritis requiring conversion to total hip arthroplasty, complications related to cementing the component, an inability to regain preinjury level of function, DVT, PE, acute coronary event, stroke, pneumonia, urinary tract infection, failure to thrive, and possibly . The patient and their family understand that while these are the most common complications other less common complications are possible. They provided their verbal and written consent to go forward with surgery. Operative Findings: Displaced right subcapital femoral neck fracture with large hemarthrosis Description of Procedure: The patient was identified in the preoperative holding area and the correct hip was marked with my initials. I reviewed the procedure and consent with the patient. All of their questions were answered. The patient was then brought back into the operating room by anesthesia. While on the [facility] anesthesia was administered by the anesthesia team. Preoperative antibiotics and tranexamic acid were also given. After the patient was under anesthesia I examined their ankles to determine their preoperative leg length discrepancy. The skin over the anterior aspect of the hip was shaved to remove hair over the site of planned incision. Both feet and ankles were padded with webril and boots for the [place] were applied. The patient was then carefully transferred onto the [place] table. A perineal post was immediately placed. The arms were placed on arm holders and were well-padded. Both boots were secured to the spars on the [place] table. The patient was positioned so that the pelvis was centered over the post. Nonsterile drapes were applied. A timeout was performed identifying the correct patient, operative extremity, and procedure. At this point fluoroscopy was brought in to take preoperative images of the pelvis and operative hip. Using the standing AP pelvis from the office as a template, a comparable image was obtained with fluoroscopy. A metallic bar was used to create a bi-ischial line for use as a reference to leg length adjustments during the procedure. Global offset was also measured on both the operative and nonoperative leg. Fluoroscopy was then brought out and a pre-scrub using a chlorhexidine scrub brush was performed. The operative limb was then prepped and draped in the standard sterile fashion. An anterior longitudinal incision was made lateral and distal to the ASIS. The skin and subcutaneous tissues were incised sharply. The underlying tensor fascia was identified and incised in its midportion. The fascia was dissected free from the underlying muscle and the muscle belly was retracted. A blunt tipped cobra retractor was placed over the superior neck under the muscle fibers of the gluteus minimus. The deep enveloping fascia of the tensor was incised. The anterior leash of vessels were then identified and cauterized. The fascia between the rectus and the capsule was then incised and the pre-capsular fat was excised. A second Cobra was placed inferior to the neck. The interval between the rectus and iliocapsularis and the hip capsule was developed and a retractor was placed carefully over the anterior rim of the acetabulum. A T-shaped anterior capsulotomy was performed. The superior capsular leaflet was left in place in the inferior capsular flap was excised. The Cobra retractors were placed intracapsularly. We then made a femoral neck osteotomy according to preoperative and intraoperative templating and confirmed the level of the osteotomy using fluoroscopic imaging. The femoral head was removed, passed off to the back table, and sized. The superior capsular flap was excised. Retractors were placed circumferentially exposing the acetabulum. We then circumferentially debrided the acetabulum free of labrum and osteophytes. The pulvinar was removed to fully visualize the cotyloid fossa. We then sequentially reamed to achieve peripheral fit and excellent bleeding subchondral bone. The socket was thoroughly irrigated. The acetabular component was impacted into the appropriate position using fluoroscopy to guide version, inclination, and depth of insertion taking care to have a comparable image of the AP pelvis to the standing image taken in the office. An excellent press-fit was achieved and final position was confirmed using fluoroscopy. The press fit was augmented with bony cancellus dome screws. The liner was then impacted into the socket. Attention was then turned to the femur. The remnant dorsal lateral capsule was excised. The short external rotators were visible and protected. A bone hook was used to confirm appropriate translation of the trochanter away from the acetabulum. The leg was then extended and adducted and the bone hook was used to elevate the femur for broaching. On inspection of the patient's proximal femur, they appeared to have poor bone quality so I elected to proceed with cemented fixation of the femoral component. A box osteotome and blunt tipped canal sound was then utilized to gain access to the femoral canal. We then sequentially broached the femur in appropriate anteversion until torsional stability was achieved and the implant was felt to have reached the appropriate size to allow trialing. The neck cut was brought flush to the trial broach with a calcar planar. A trial neck and head were then placed onto the broach and the hip was atraumatically reduced under direct visualization. External rotation to 90 was performed to assess stability. Fluoroscopy was brought in. An AP and lateral fluoroscopic image of the proximal femur was obtained to assess position and fill of the trial broach. An AP of the pelvis was then obtained and matched to the preoperative image taken. A bi-ischial bar was then placed and measurements were taken to assess changes in length and offset. The hip was then carefully dislocated, the proximal femur was exposed, and the trial implants were removed. The proximal femur was then prepared for cementing. The canal was thoroughly irrigated with pulsatile lavage to remove blood and marrow contents. A cement restrictor was placed to a depth just distal to the tip of the final implant. Epinephrine-soaked gauze was then packed into the proximal femur. 2 bags of cement were then mixed using a centrifuge and placed into a cement gun. Anesthesia was notified that cementing was about to commence to make sure the patient was appropriately ventilated and hydrated. Once the cement had reached appropriate consistency, the cement gun was used to fill the canal in a retrograde fashion starting at the restrictor. Cement was then pressurized into the canal with a blue tipped inspectors and regulatory officers. The stem was then carefully introduced into the cement taking care to guide the implant into appropriate version. The stem was held in position until the cement had fully set. All extra cement was removed while the cement was hardening. The trunnion was cleansed and the final head was tapped into place to engage the Nix taper. The acetabulum was irrigated and visualized to be free of debris. The hip was carefully reduced. Stability was checked clinically with external rotation to 90 and there was no evidence of instability. Final fluoroscopic images were taken. The wound was then thoroughly irrigated and soaked with a dilute Betadine rinse for 3 minutes. 3 L of sterile saline was irrigated through the wound using pulsatile lavage. Local anesthetic cocktail was injected into the soft tissues around the surgical field. The wound was then closed in layers. A sterile dressing was placed over the surgical incision. The drapes were taken down and the patient was carefully transferred off of the [place] table. Following removal of the boots the leg lengths felt acceptable. The patient was then taken to recovery room having tolerated the procedure well. Horacio Loyd PA-C was required as a skilled assistant professor of history due to the complexity of surgery for patient positioning, draping, exposure, retraction, closure of wound and application of dressing. PLAN: The patient can weight-bear as tolerated on the operative extremity. 2 doses of postoperative antibiotics. DVT prophylaxis -okay to resume anticoagulation this evening. I will defer to internal medicine on choice, either Coumadin or DOAC, dosing etc. Physical therapy for gait training.
--- NOTE | 2025-01-15 10:47 | XR ---
Right hip HISTORY: Right hip prosthesis placement. COMPARISON: None TECHNIQUE: 21.3 seconds of fluoroscopy and 5 fluoroscopic spot films in the OR were obtained. FINDINGS: Fluoroscopy and spot films demonstrate placement of a right hip prosthesis. There is near-anatomic al ignment. IMPRESSION: Intraoperative procedure demonstrating prosthetic right hip placement in satisfactory position. [facility] , 01/15/2025 10:44 AM
--- NOTE | 2025-01-15 10:48 | FL ---
Fluoroscopic guidance in the operating room. HISTORY: Right hip prosthesis placement. Findings and impression: 17 seconds of fluoroscopy was provided for the placement of right hip prosthesis in the operating tracy m [facility], Workstation: [id number] 01/15/2025 10:45 AM
[2025-01-15 13:00] LABS: Basophils # (A) 0.04 10*3/uL (0.00-0.10); Basophils % (A) 0.3 %; Eosinophils # (A) 0.05 10*3/uL (0.04-0.35); Eosinophils % (A) 0.4 %; HCT 41.0 % (39.6-50.0); HGB 13.4 g/dL (13.0-17.0); Lymphocytes # (A) 0.93 10*3/uL (0.90-5.00); Lymphocytes % (A) 7.5 %; MCH 32.2 pg (27.0-32.0); MCHC 32.7 g/dL (32.0-37.0); MCV 98.6 fL (80.0-97.0); Monocytes # (A) 1.19 10*3/uL (0.20-1.00); Monocytes % (A) 9.6 %; Neutrophils # (A) 10.07 10*3/uL (1.80-7.70); Neutrophils % (A) 81.7 %; Platelet Count 112 10*3/uL (140-440); RBC 4.16 10*6/uL (4.40-5.60); RDW 15.2 % (11.5-14.5); WBC 12.34 10*3/uL (4.50-10.00)
[2025-01-15] MEDS: SODIUM CHLORIDE 0.9% 1,000 ML IV ONE (13:27)
[2025-01-15] MEDS: MULTIVITAMINS, THERA 1 EACH TAB PO SCH (13:27)
[2025-01-15] MEDS ORDERED: ENOXAPARIN 40 MG/0.4 ML SYRINGE SQ SCH (15:45)
--- NOTE | 2025-01-15 16:00 | P.PN ---
Subjective Progress Note Date: 01/15/25 Patient reports still having significant back and knee pain today worse on the right side. Says he has not gotten up out of bed since arrival in the ED. Understands the plan for surgery this morning. Objective - Vital Signs Vital signs: Vital Signs Temp 99.4 F 01/15/25 06:52 Pulse 81 01/15/25 06:52 Resp 18 01/15/25 06:52 BP 128/68 01/15/25 06:52 Pulse Ox 91 L 01/15/25 06:52 FiO2 Intake & Output 01/14/25 01/15/25 01/15/25 18:59 06:59 18:59 Intake Total 100 Output Total 1600 900 Balance -1600 -900 100 Weight 89.811 kg Intake: IV 100 Output: Urine 1600 900 Uretheral (Jay) 600 Other: Voiding Method Indwelling Catheter - Exam General: Mild distress. Derm: warm, dry Head: atraumatic, normocephalic, symmetric Mouth: Pharyngeal erythema noted. Mucous membranes appeared moist on exam. Cardiovascular: Irregularly irregular rhythm. No murmur. Mild edema bilaterally to lower extremities with wrinkled skin. Lungs: Lungs clear to auscultation bilaterally. No rales Abdominal: Nondistended. Nontender to palpation in all 4 quadrants Ext: no gross muscle atrophy. no contractures Neuro: no focal neuro deficits Psych: Alert and oriented - Labs CBC & Chem 7: 01/15/25 12:37 01/15/25 02:41 Labs: Abnormal Lab Results - Last 24 Hours (Table) 01/14/25 01/14/25 01/14/25 Range/Units 16:55 20:09 20:49 RBC (4.40-5.60) X 10*6/uL Hgb (13.0-17.0) g/dL Hct (39.6-50.0) % RDW (11.5-14.5) % Plt Count (140-440) X 10*3/uL Lymphocytes # (0.90-5.00) X 10*3/uL PT 21.5 H (10.0-12.5) sec INR 2.1 H (<1.2) POC Glucose (mg/dL) 127 H 123 H (70-110) mg/dL NT-Pro-B Natriuret Pep (0-450) pg/mL 01/15/25 01/15/25 01/15/25 Range/Units 02:41 02:41 02:41 RBC 4.07 L (4.40-5.60) X 10*6/uL Hgb 12.8 L (13.0-17.0) g/dL Hct 39.3 L (39.6-50.0) % RDW 15.4 H (11.5-14.5) % Plt Count 113 L (140-440) X 10*3/uL Lymphocytes # 0.88 L (0.90-5.00) X 10*3/uL PT 16.9 H (10.0-12.5) sec INR 1.6 H (<1.2) POC Glucose (mg/dL) (70-110) mg/dL NT-Pro-B Natriuret Pep 8141 H (0-450) pg/mL 01/15/25 Range/Units 06:39 RBC (4.40-5.60) X 10*6/uL Hgb (13.0-17.0) g/dL Hct (39.6-50.0) % RDW (11.5-14.5) % Plt Count (140-440) X 10*3/uL Lymphocytes # (0.90-5.00) X 10*3/uL PT (10.0-12.5) sec INR (<1.2) POC Glucose (mg/dL) 134 H (70-110) mg/dL NT-Pro-B Natriuret Pep (0-450) pg/mL Assessment and Plan Assessment: Assessment/plan: 1.Preoperative clearance Permanent atrial fibrillation Chronic diastolic heart failure -NSQIP estimates a risk of MACE of 4.7%. This represents an elevated risk for intermediate risk surgery. Patient was counseled on this regarding his multiple comorbidities. That being said the benefits of operating on this patient to preserve ambulatory function, reduce risk of DVT and further debility as early as possible outweigh the risks. Patient will be optimized for surgery without need of further testing once INR is under 1.6. -Patient's INR 1.6 this morning and underwent surgery successfully -Cardiology consultation appreciated -Target capillary blood glucose between 140-180 2.CAD/PAD/hypertension/hyperlipidemia -Continue patient's atorvastatin, metoprolol, primidone 3. Right hip fracture s/p direct anterior hip hemiarthroplasty -Pain management per primary team, surgery team has deferred anticoagulation to us, we will start Eliquis 5 mg twice daily I saw and evaluated the patient during the batista and critical portions of this encounter, and discussed the case in detail with the resident author of this note, I agree with the Assessment and Plan, and my changes, if any, are highlighted in blue.
[2025-01-15 18:09] LABS: Glucose,Whole Blood 183 mg/dL (70-110)
[2025-01-15 20:12] LABS: Glucose,Whole Blood 156 mg/dL (70-110)
[2025-01-15] MEDS: APIXABAN 5 MG TAB PO SCH (20:33)
[2025-01-15] MEDS: SENNOSIDES-DOCUSATE SODIUM 1 EACH TAB PO SCH (20:34)
--- NOTE | 2025-01-15 23:54 | P.CRDCN ---
History of Present Illness Consult date: 01/15/25 History of present illness: HISTORY OF PRESENTING ILLNESS: 84-year-old with PMH of CAD status post PCI hypertension dyslipidemia PAD permanent atrial fibrillation on warfarin therapy. Known to Dr. Reyes He had a mechanical fall at home and thereafter he severe right hip fracture. For this he underwent surgery today. Cardiology was consulted for perioperative and postoperative management along with his prior cardiovascular history. He denies any symptoms of chest pain chest pressure palpitation lightheadedness dizziness. She denies any feeling of dizziness lately. Denies any symptoms of syncope or passing out. Labs hemoglobin 12.8, BUN 19, creatinine 1, A1c 5.9, NT-proBNP 8000 EKG shows atrial fibrillation, heart rate 58 bpm, right bundle branch block Chest x-ray from admission does not show significant signs of consolidation or congestion. Home medications lisinopril 10, warfarin, Lasix 20 daily, simvastatin 20 daily, metoprolol 12.5 mg twice daily, ................................................................................ .............................................................. REVIEW OF SYSTEMS: 14 point review of system is negative except what is mentioned above in HPI. ............................................................ ................................................................................ .. PHYSICAL EXAMINATION: Neck: Brisk carotid upstroke, no jugular venous distention. Lungs: Poor inspiratory effort, mild crackles audible in bases likely from atelectasis. Heart: Irregular pulse, mild systolic murmur audible Abdomen: Soft nontender, positive bowel sounds. Extremities: Minimal edema with chronic skin changes in bilateral lower legs. Restricted left leg movement because of hip surgery. Neuro: Alert, oritented, no focal deficits. Detailed neuro exam was not performed. .............................. ................................................................................ ................................ ASSESSMENT: # Mechanical fall leading to right hip fracture status post hemiarthroplasty 01/15/2025 # Stable CAD with prior history of PCI # Dyslipidemia # Essential hypertension # History of PAD # Pulmonary atrial fibrillation on warfarin therapy. PLAN: Continue IV Lasix 20 mg today and tomorrow and transition to p.o on Thursday Obtain office notes. This recent echocardiogram no need to repeat 1. After discussion, patient is agreeable to start Eliquis 5 twice daily. If high cost burden will revert back to warfarin Continue Lipitor 10, lisinopril 10, metoprolol 12.5 twice daily PT OT Supportive care Consider repeating outpatient Holter monitor to see heart rate response on curr ent beta-claribel therapy to see if that is contributing to patient's fatigue and weakness Provide incentive spirometry for the patient Errol Kulkarni MD, FAC, VI Past Medical History Past Medical History: Atrial Fibrillation, Asthma, Chest Pain / Angina, COPD, Hypertension, Prostate Disorder, Sleep Apnea/CPAP/BIPAP Additional Past Medical History / Comment(s): STATES MILD ASTHMA/COPD (NO RX)., DUODENOL ULCER (50 YRS AGO), HX BPH., USES C-PAP MACHINE., SEE CARDIOLOGY H & P. History of Any Multi-Drug Resistant Organisms: None Reported Past Surgical History: Heart Catheterization With Stent, Hernia Repair, Orthopedic Surgery Additional Past Surgical History / Comment(s): JAZZY DUPUYTRENS CONTRACTURE HAND., MORTONS NEUROMA JAZZY FEET., INGUINAL HERNIA Past Anesthesia/Blood Transfusion Reactions: No Reported Reaction, Motion S ickness Date of Last Stent Placement:: 2003 Past Psychological History: No Psychological Hx Reported Smoking Status: Former smoker Past Alcohol Use History: Daily Additional Past Alcohol Use History / Comment(s): QUIT SMOKING 1983 (35 YRS AGO), SMOKED 1 PPD, STARTED SMOKING AGE 15. DRINKS 1 DRINK DAILY (LIQUOR) Past Drug Use History: None Reported - Past Family History Father Family Medical History: Cancer Additional Family Medical History / Comment(s): TESTICULAR CANCER. Brother(s) Family Medical History: Cancer Additional Family Medical History / Comment(s): PROSTATE CANCER. Medications and Allergies Home Medications Medication Instructions Recorded Confirmed Type Furosemide [Lasix] 20 mg PO DAILY 06/10/19 01/14/25 History Multivitamins, Thera [Multivitamin 1 tab PO DAILY 06/10/19 01/14/25 History (formulary)] Simvastatin 20 mg PO HS 06/10/19 01/14/25 History Warfarin [Coumadin] 2.5 mg PO SUTUWETHFRSA@2100 06/10/19 01/14/25 History lisinopriL [Zestril] 10 mg PO HS 06/10/19 01/14/25 History Warfarin [Coumadin] 1.25 mg PO MO@2100 10/29/21 01/14/25 History Cyanocobalamin (Vitamin B-12) 1,000 mcg PO DAILY 01/14/25 01/14/25 History [Vitamin B-12] Metoprolol Tartrate [Lopressor] 12.5 mg PO BID 01/14/25 01/14/25 History Primidone [Mysoline] 50 mg PO HS 01/14/25 01/14/25 History Thiamine [Vitamin B-1] 100 mg PO DAILY 01/14/25 01/14/25 History Allergies Allergy/AdvReac Type Severity Reaction Status Date / Time No Known Allergies Allergy Verified 01/14/25 09:09 Physical Exam Vitals: Vital Signs Temp Pulse Resp BP Pulse Ox 01/15/25 20:00 98.7 F 98 19 144/68 93 L 01/15/25 15:53 16 01/15/25 14:59 91 L 01/15/25 14:30 100 118/67 85 L 01/15/25 14:15 110 H 118/67 78 L 01/15/25 14:00 94 105/67 83 L 01/15/25 13:45 104 H 106/69 83 L 01/15/25 13:30 103 H 110/61 86 L 01/15/25 13:15 91 110/63 79 L 01/15/25 13:00 88 108/68 79 L 01/15/25 12:45 100 120/72 74 L 01/15/25 12:30 108 H 126/69 73 L 01/15/25 12:00 84 16 125/63 94 L 01/15/25 11:45 86 16 122/66 94 L 01/15/25 11:30 86 16 126/62 97 01/15/25 11:15 70 16 124/66 97 01/15/25 11:00 76 16 133/74 97 01/15/25 06:52 99.4 F 81 18 128/68 91 L 01/15/25 02:00 99.4 F 76 18 136/79 90 L Intake and Output 01/15/25 01/15/25 01/16/25 14:59 22:59 06:59 Intake Total 1100 Output Total 300 400 Balance 800 -400 Intake: IV 1100 Output: Urine 100 400 Estimated Blood Loss 200 Other: Voiding Method Indwelling Catheter Results 01/15/25 12:37 01/15/25 02:41 Coagulation 01/15/25 Range/Units 02:41 PT 16.9 H (10.0-12.5) sec CBC 01/15/25 01/15/25 Range/Units 02:41 12:37 WBC 9.19 12.34 H (4.50-10.00) X 10*3/uL RBC 4.07 L 4.16 L (4.40-5.60) X 10*6/uL Hgb 12.8 L 13.4 (13.0-17.0) g/dL Hct 39.3 L 41.0 (39.6-50.0) % Plt Count 113 L 112 L (140-440) X 10*3/uL Comprehensive Metabolic Panel 01/15/25 Range/Units 02:41 Sodium 142 (135-145) mmol/L Potassium 4.4 (3.5-5.5) mmol/L Chloride 108 (96-109) mmol/L Carbon Dioxide 19.2 L (21.6-31.8) mmol/L BUN 19.3 (9.0-27.0) mg/dL Creatinine 1.0 (0.6-1.5) mg/dL Glucose 126 H (70-110) mg/dL Calcium 8.2 L (8.7-10.3) mg/dL Current Medications Generic Name Dose Route Start Last Admin Trade Name Freq PRN Reason Stop Dose Admin Hydrocodone Bitart/Acetaminophen 1 each 01/15/25 10:44 Hydrocodone/Apap 5-325mg 1 Each Tab PO Q6HR PRN Pain Scale 1 to 5 Hydrocodone Bitart/Acetaminophen 1 each 01/15/25 10:44 Hydrocodone/Apap 10-325mg 1 Each Tab PO Q6H PRN Pain Scale 6 to 10 Apixaban 5 mg 01/15/25 21:00 01/15/25 20:33 Apixaban 5 Mg Tab PO 5 mg BID ON LICENSE OF [facility] Administration Protocol Atorvastatin Calcium 10 mg 01/14/25 09:00 01/15/25 09:03 Atorvastatin 10 Mg Tab PO Not Given DAILY ON LICENSE OF [facility] Cyanocobalamin 1,000 mcg 01/15/25 09:00 01/15/25 09:03 Cyanocobalamin 500 Mcg Tab PO Not Given DAILY ON LICENSE OF [facility] Dextrose/Water 25 ml 01/14/25 13:07 Dextrose 50% Syringe 50 Ml IVP PER PROTOCOL PRN Hypoglycemia Protocol Dextrose/Water 50 ml 01/14/25 13:07 Dextrose 50% Syringe 50 Ml IVP PER PROTOCOL PRN Hypoglycemia Protocol Diazepam 2.5 mg 01/15/25 10:44 Diazepam 5 Mg Tab PO Q8HR PRN Mild Spasms Furosemide 20 mg 01/14/25 13:15 01/15/25 13:21 Furosemide 10 Mg/Ml 2 Ml Vial IV Not Given DAILY ON LICENSE OF [facility] Hydromorphone HCl 0.125 mg 01/15/25 10:44 Hydromorphone 0.5 Mg/0.5 Ml Syringe IVP Q3HR PRN Pain Scale 1 to 3 Hydromorphone HCl 0.25 mg 01/15/25 10:44 Hydromorphone 0.5 Mg/0.5 Ml Syringe IVP Q3HR PRN Pain Scale 4 to 6 Hydromorphone HCl 0.5 mg 01/15/25 10:44 Hydromorphone 0.5 Mg/0.5 Ml Syringe IVP Q3HR PRN Pain Scale 7 to 10 Sodium Chloride 1,000 mls @ 50 mls/hr 01/15/25 10:44 01/15/25 13:27 Saline 0.9% IV 01/16/25 06:43 50 mls/hr .Q20H ONE Administration Cefazolin Sodium 2 gm/ Sodium 50 mls @ 100 mls/hr 01/15/25 17:00 01/15/25 16:51 Chloride IVPB 01/16/25 01:29 100 mls/hr Q8H EDUARDO Administration Protocol Insulin Human Lispro 0 unit 01/14/25 17:30 01/15/25 18:46 Insulin Lispro (Humalog) 100 Unit/Ml 10 Ml Vl SQ 2 unit AC-TID EDUARDO Administration Protocol Lisinopril 10 mg 01/14/25 09:00 01/15/25 13:22 Lisinopril 10 Mg Tab PO Not Given DAILY EDUARDO Magnesium Hydroxide 2,400 mg 01/15/25 10:44 Magnesium Hydroxide 2,400 Mg/30 Ml Cup PO DAILY PRN Constipation Metoprolol Tartrate 12.5 mg 01/14/25 21:00 01/15/25 20:34 Metoprolol Tartrate 12.5 Mg Tab PO 12.5 mg BID EDUARDO Administration Multivitamins 1 each 01/15/25 12:00 01/15/25 13:27 Multivitamins, Thera 1 Each Tab PO 1 each DAILY@1200 EDUARDO Administration Naloxone HCl 0.2 mg 01/15/25 10:44 Naloxone 0.4 Mg/Ml 1 Ml Vial IV Q2M PRN Opioid Reversal Ondansetron HCl 4 mg 01/14/25 04:03 Ondansetron 4 Mg/2 Ml Vial IVP Q8HR PRN Nausea And Vomiting Primidone 50 mg 01/14/25 21:00 01/15/25 20:34 Primidone 50 Mg Tab PO 50 mg HS EDUARDO Administration Senna/Docusate Sodium 2 each 01/15/25 21:00 01/15/25 20:34 Sennosides-Docusate Sodium 1 Each Tab PO 2 each HS EDUARDO Administration Thiamine HCl 100 mg 01/15/25 09:00 01/15/25 09:03 Thiamine 100 Mg Tab PO Not Given DAILY EDUARDO Intake and Output 01/15/25 01/15/25 01/16/25 14:59 22:59 06:59 Intake Total 1100 Output Total 300 400 Balance 800 -400 Intake: IV 1100 Output: Urine 100 400 Estimated Blood Loss 200 Other: Voiding Method Indwelling Catheter 01/15/25 12:37 01/15/25 02:41
[2025-01-16] MEDS: HYDROcodone/APAP 5-325MG 1 EACH TAB PO PRN (05:56)
[2025-01-16 05:59] LABS: African American GFR (CKD) 79 (>60 ml/min/1.73 sqM); Anion Gap 5 mmol/L; Blood Urea Nitrogen 22 mg/dL (9-20); Calcium 8.2 mg/dL (8.4-10.2); Carbon Dioxide 22 mmol/L (22-30); Chloride 106 mmol/L (98-107); Glucose 128 mg/dL (74-99); Non-African American GFR(CKD) 68 (>60 ml/min/1.73 sqM); Potassium 4.3 mmol/L (3.5-5.1); Sodium 133 mmol/L (137-145)
[2025-01-16 06:03] LABS: INR 1.4 (<1.2); Partial Thromboplastin Time 28.5 sec (22.0-30.0); Prothrombin Time 14.3 sec (10.0-12.5)
[2025-01-16 06:07] LABS: NT-Pro-B-Type Natriuretic Pept 11300 pg/mL
[2025-01-16 06:21] LABS: Glucose,Whole Blood 145 mg/dL (70-110)
--- NOTE | 2025-01-16 07:53 | P.PN ---
Subjective Progress Note Date: 01/16/25 No acute events overnight. Patient is doing well this morning. The pain in their knee is mild. They deny chest pain or shortness of breath. Objective - Vital Signs Vital signs: Vital Signs Temp 100.3 F H 01/16/25 07:00 Pulse 94 01/16/25 07:00 Resp 18 01/16/25 07:00 BP 113/64 01/16/25 07:00 Pulse Ox 93 L 01/16/25 07:00 FiO2 Intake & Output 01/15/25 01/16/25 01/16/25 18:59 06:59 18:59 Intake Total 1100 Output Total 700 700 Balance 400 -700 Intake: IV 1100 Output: Urine 500 700 Estimated Blood Loss 200 Other: Voiding Method Indwelling Catheter Indwelling Catheter - Exam Patient was examined at bedside. Patient is resting comfortably in bed. No apparent distress. They are awake, alert and able to answer questions. Inspection: The surgical dressing is intact, there is no drainage or strikethrough. The skin surrounding the dressing is free of erythema. There is mild swelling in the operative thigh. Palpation: The operative right calf is soft to compression. No calf tenderness. Neurovascular: Operative femoral nerve function is intact. The patient is able to actively plantarflex and dorsiflex their operative ankle and toes. Operative extremity sensation is intact to light touch throughout. Their operative foot appears well perfused, palpable dorsalis pedis pulse, and capillary refill under 2 seconds. - Labs CBC & Chem 7: 01/15/25 12:37 01/16/25 05:21 Labs: Abnormal Lab Results - Last 24 Hours (Table) 01/15/25 01/15/25 01/15/25 Range/Units 02:41 02:41 12:37 WBC 12.34 H (4.50-10.00) 10*3/uL RBC 4.07 L 4.16 L (4.40-5.60) X 10*6/uL Hgb 12.8 L (13.0-17.0) g/dL Hct 39.3 L (39.6-50.0) % MCV 98.6 H (80.0-97.0) fL MCH 32.2 H (27.0-32.0) pg RDW 15.4 H 15.2 H (11.5-14.5) % Plt Count 113 L 112 L (140-440) X 10*3/uL Immature Gran # 0.06 H (0.00-0.04) 10*3/uL Neutrophils # 10.07 H (1.80-7.70) 10*3/uL Lymphocytes # 0.88 L (0.90-5.00) X 10*3/uL Monocytes # 1.19 H (0.20-1.00) 10*3/uL PT (10.0-12.5) sec INR (<1.2) Sodium (137-145) mmol/L Carbon Dioxide 19.2 L (21.6-31.8) mmol/L Anion Gap 14.80 H (4.00-12.00) mmol/L BUN (9-20) mg/dL Glucose 126 H (70-110) mg/dL POC Glucose (mg/dL) (70-110) mg/dL Calcium 8.2 L (8.7-10.3) mg/dL NT-Pro-B Natriuret Pep 8141 H (0-450) pg/mL 01/15/25 01/15/25 01/16/25 Range/Units 18:08 20:11 05:21 WBC (4.50-10.00) 10*3/uL RBC (4.40-5.60) X 10*6/uL Hgb (13.0-17.0) g/dL Hct (39.6-50.0) % MCV (80.0-97.0) fL MCH (27.0-32.0) pg RDW (11.5-14.5) % Plt Count (140-440) X 10*3/uL Immature Gran # (0.00-0.04) 10*3/uL Neutrophils # (1.80-7.70) 10*3/uL Lymphocytes # (0.90-5.00) X 10*3/uL Monocytes # (0.20-1.00) 10*3/uL PT 14.3 H (10.0-12.5) sec INR 1.4 H (<1.2) Sodium (137-145) mmol/L Carbon Dioxide (21.6-31.8) mmol/L Anion Gap (4.00-12.00) mmol/L BUN (9-20) mg/dL Glucose (70-110) mg/dL POC Glucose (mg/dL) 183 H 156 H (70-110) mg/dL Calcium (8.7-10.3) mg/dL NT-Pro-B Natriuret Pep (0-450) pg/mL 01/16/25 01/16/25 Range/Units 05:21 06:20 WBC (4.50-10.00) 10*3/uL RBC (4.40-5.60) X 10*6/uL Hgb (13.0-17.0) g/dL Hct (39.6-50.0) % MCV (80.0-97.0) fL MCH (27.0-32.0) pg RDW (11.5-14.5) % Plt Count (140-440) X 10*3/uL Immature Gran # (0.00-0.04) 10*3/uL Neutrophils # (1.80-7.70) 10*3/uL Lymphocytes # (0.90-5.00) X 10*3/uL Monocytes # (0.20-1.00) 10*3/uL PT (10.0-12.5) sec INR (<1.2) Sodium 133 L (137-145) mmol/L Carbon Dioxide (21.6-31.8) mmol/L Anion Gap (4.00-12.00) mmol/L BUN 22 H (9-20) mg/dL Glucose 128 H (70-110) mg/dL POC Glucose (mg/dL) 145 H (70-110) mg/dL Calcium 8.2 L (8.7-10.3) mg/dL NT-Pro-B Natriuret Pep (0-450) pg/mL Assessment and Plan Assessment: Postop day #1 01/15/2025 status post Right direct anterior hip hemiarthroplasty for Displaced right subcapital femoral neck fracture Plan: Weight-bear as tolerated on the operative extremity. Use a walker to ambulate. Leave surgical dressing in place. Physical therapy for gait training and mobilization. We appreciate internal medicine for perioperative medical management. Disposition: pending physical therapy
[2025-01-16] MEDS: FUROSEMIDE 10 MG/ML 2 ML VIAL IV STA (09:34)
[2025-01-16] MEDS: ACETAMINOPHEN TAB 325 MG TAB PO PRN (09:45)
[2025-01-16 09:57] LABS: Basophils # (A) 0.03 10*3/uL (0.00-0.10); Basophils % (A) 0.3 %; Eosinophils # (A) 0.01 10*3/uL (0.04-0.35); Eosinophils % (A) 0.1 %; HCT 35.6 % (39.6-50.0); HGB 11.9 g/dL (13.0-17.0); Lymphocytes # (A) 0.95 10*3/uL (0.90-5.00); Lymphocytes % (A) 8.7 %; MCH 32.3 pg (27.0-32.0); MCHC 33.4 g/dL (32.0-37.0); MCV 96.7 fL (80.0-97.0); Monocytes # (A) 1.11 10*3/uL (0.20-1.00); Monocytes % (A) 10.2 %; Neutrophils # (A) 8.77 10*3/uL (1.80-7.70); Neutrophils % (A) 80.4 %; RBC 3.68 10*6/uL (4.40-5.60); RDW 15.1 % (11.5-14.5); WBC 10.90 10*3/uL (4.50-10.00)
[2025-01-16 11:45] LABS: Glucose,Whole Blood 136 mg/dL (70-110)
[2025-01-16 11:53] LABS: Platelet Count 99 10*3/uL (140-440)
--- NOTE | 2025-01-16 13:15 | P.PN ---
Subjective HISTORY OF PRESENT ILLNESS: 84-year-old with PMH of CAD status post PCI hypertension dyslipidemia PAD permanent atrial fibrillation on warfarin therapy. Known to Dr. Reyes He had a mechanical fall at home and thereafter he severe right hip fracture. For this he underwent surgery today. Cardiology was consulted for perioperative and postoperative management along with his prior cardiovascular history. He denies any symptoms of chest pain chest pressure palpitation lightheadedness dizziness. She denies any feeling of dizziness lately. Denies any symptoms of syncope or passing out. Labs hemoglobin 12.8, BUN 19, creatinine 1, A1c 5.9, NT-proBNP 8000 EKG shows atrial fibrillation, heart rate 58 bpm, right bundle branch block Chest x-ray from admission does not show significant signs of consolidation or congestion. Home medications lisinopril 10, warfarin, Lasix 20 daily, simvastatin 20 daily, metoprolol 12.5 mg twice daily, 01/16/2025 Patient examined this morning at the bedside. He denies chest pain or pressure. He reports mild shortness of breath. He was on 5 L nasal cannula this morning, per nursing she was able to wean it to 3 L nasal cannula. proBNP is 11,300. PHYSICAL EXAM: VITAL SIGNS: Reviewed. GENERAL: Well-developed in no acute distress. NECK: Supple. No JVD or thyromegaly LUNGS: Respirations even and unlabored. Lungs essentially clear to auscultation bilaterally. HEART: Irregular rate and rhythm. S1 and S2 heard. EXTREMITIES: Normal range of motion. No clubbing or cyanosis. Peripheral pulses intact. Trace lower extremity edema ASSESSMENT: Mechanical fall fall Right hip fracture status post hemiarthroplasty 01/15/2025 Acute hypoxic respiratory failure requiring supplemental oxygen Acute on chronic heart failure, type unknown, no echo available in EMR Coronary artery disease with previous stenting Hypertension Hyperlipidemia Persistent atrial fibrillation Peripheral arterial disease History of COPD PLAN: Increase IV Lasix to 40 mg every 12 hours Daily weights, accurate intake and output, monitoring of kidney function Continue anticoagulation with Eliquis Continue additional cardiac medications Wean oxygen as tolerated Further recommendations pending patient course Nurse practitioner note has been reviewed by physician. Signing provider agrees with the documented findings, assessment, and plan of care documented by JIGMAN as a scribe. Objective - Vital Signs Vital signs: Vital Signs Temp 100.3 F H 01/16/25 07:00 Pulse 75 01/16/25 09:05 Resp 18 01/16/25 07:00 BP 110/60 01/16/25 09:05 Pulse Ox 92 L 01/16/25 09:30 FiO2 Intake & Output 01/15/25 01/16/25 01/16/25 18:59 06:59 18:59 Intake Total 1100 Output Total 700 700 Balance 400 -700 Intake: IV 1100 Output: Urine 500 700 Estimated Blood Loss 200 Other: Voiding Method Indwelling Catheter Indwelling Catheter - Labs CBC & Chem 7: 01/16/25 05:21 01/16/25 05:21 Labs: Abnormal Lab Results - Last 24 Hours (Table) 01/15/25 01/15/25 01/16/25 Range/Units 18:08 20:11 05:21 WBC (4.50-10.00) 10*3/uL RBC (4.40-5.60) 10*6/uL Hgb (13.0-17.0) g/dL Hct (39.6-50.0) % MCH (27.0-32.0) pg RDW (11.5-14.5) % Plt Count (140-440) 10*3/uL Neutrophils # (1.80-7.70) 10*3/uL Monocytes # (0.20-1.00) 10*3/uL Eosinophils # (0.04-0.35) 10*3/uL PT 14.3 H (10.0-12.5) sec INR 1.4 H (<1.2) Sodium (137-145) mmol/L BUN (9-20) mg/dL Glucose (74-99) mg/dL POC Glucose (mg/dL) 183 H 156 H (70-110) mg/dL Calcium (8.4-10.2) mg/dL 01/16/25 01/16/25 01/16/25 Range/Units 05:21 05:21 06:20 WBC 10.90 H (4.50-10.00) 10*3/uL RBC 3.68 L (4.40-5.60) 10*6/uL Hgb 11.9 L (13.0-17.0) g/dL Hct 35.6 L (39.6-50.0) % MCH 32.3 H (27.0-32.0) pg RDW 15.1 H (11.5-14.5) % Plt Count 99 L (140-440) 10*3/uL Neutrophils # 8.77 H (1.80-7.70) 10*3/uL Monocytes # 1.11 H (0.20-1.00) 10*3/uL Eosinophils # 0.01 L (0.04-0.35) 10*3/uL PT (10.0-12.5) sec INR (<1.2) Sodium 133 L (137-145) mmol/L BUN 22 H (9-20) mg/dL Glucose 128 H (74-99) mg/dL POC Glucose (mg/dL) 145 H (70-110) mg/dL Calcium 8.2 L (8.4-10.2) mg/dL 01/16/25 Range/Units 11:41 WBC (4.50-10.00) 10*3/uL RBC (4.40-5.60) 10*6/uL Hgb (13.0-17.0) g/dL Hct (39.6-50.0) % MCH (27.0-32.0) pg RDW (11.5-14.5) % Plt Count (140-440) 10*3/uL Neutrophils # (1.80-7.70) 10*3/uL Monocytes # (0.20-1.00) 10*3/uL Eosinophils # (0.04-0.35) 10*3/uL PT (10.0-12.5) sec INR (<1.2) Sodium (137-145) mmol/L BUN (9-20) mg/dL Glucose (74-99) mg/dL POC Glucose (mg/dL) 136 H (70-110) mg/dL Calcium (8.4-10.2) mg/dL
--- NOTE | 2025-01-16 13:21 | P.PN ---
Subjective Progress Note Date: 01/16/25 Patient in less pain today overall. He mentions some right foot pain but otherwise denies any new overnight symptoms. Objective - Vital Signs Vital signs: Vital Signs Temp 100.3 F H 01/16/25 07:00 Pulse 75 01/16/25 09:05 Resp 18 01/16/25 07:00 BP 110/60 01/16/25 09:05 Pulse Ox 92 L 01/16/25 09:30 FiO2 Intake & Output 01/15/25 01/16/25 01/16/25 18:59 06:59 18:59 Intake Total 1100 Output Total 700 700 Balance 400 -700 Intake: IV 1100 Output: Urine 500 700 Estimated Blood Loss 200 Other: Voiding Method Indwelling Catheter Indwelling Catheter - Exam General: No acute distress. Lying back in bed. Derm: warm, dry Head: atraumatic, normocephalic, symmetric Mouth: Pharyngeal erythema noted. Mucous membranes appeared moist on exam. Cardiovascular: Irregularly irregular rhythm. No murmur. Mild edema bilaterally to lower extremities with wrinkled skin. Lungs: Mild Rales noted to lungs bilaterally. Abdominal: Nondistended. Nontender to palpation in all 4 quadrants Ext: Examined right foot: no visible wounds or discoloration. Full range of motion. Adjusted RLE SCD. no gross muscle atrophy. no contractures Neuro: no focal neuro deficits Psych: Alert and oriented - Labs CBC & Chem 7: 01/16/25 05:21 01/16/25 05:21 Labs: Abnormal Lab Results - Last 24 Hours (Table) 01/15/25 01/15/25 01/15/25 Range/Units 12:37 18:08 20:11 WBC 12.34 H (4.50-10.00) 10*3/uL RBC 4.16 L (4.40-5.60) 10*6/uL Hgb (13.0-17.0) g/dL Hct (39.6-50.0) % MCV 98.6 H (80.0-97.0) fL MCH 32.2 H (27.0-32.0) pg RDW 15.2 H (11.5-14.5) % Plt Count 112 L (140-440) 10*3/uL Immature Gran # 0.06 H (0.00-0.04) 10*3/uL Neutrophils # 10.07 H (1.80-7.70) 10*3/uL Monocytes # 1.19 H (0.20-1.00) 10*3/uL Eosinophils # (0.04-0.35) 10*3/uL PT (10.0-12.5) sec INR (<1.2) Sodium (137-145) mmol/L BUN (9-20) mg/dL Glucose (74-99) mg/dL POC Glucose (mg/dL) 183 H 156 H (70-110) mg/dL Calcium (8.4-10.2) mg/dL 01/16/25 01/16/25 01/16/25 Range/Units 05:21 05:21 05:21 WBC 10.90 H (4.50-10.00) 10*3/uL RBC 3.68 L (4.40-5.60) 10*6/uL Hgb 11.9 L (13.0-17.0) g/dL Hct 35.6 L (39.6-50.0) % MCV (80.0-97.0) fL MCH 32.3 H (27.0-32.0) pg RDW 15.1 H (11.5-14.5) % Plt Count 99 L (140-440) 10*3/uL Immature Gran # (0.00-0.04) 10*3/uL Neutrophils # 8.77 H (1.80-7.70) 10*3/uL Monocytes # 1.11 H (0.20-1.00) 10*3/uL Eosinophils # 0.01 L (0.04-0.35) 10*3/uL PT 14.3 H (10.0-12.5) sec INR 1.4 H (<1.2) Sodium 133 L (137-145) mmol/L BUN 22 H (9-20) mg/dL Glucose 128 H (74-99) mg/dL POC Glucose (mg/dL) (70-110) mg/dL Calcium 8.2 L (8.4-10.2) mg/dL 01/16/25 01/16/25 Range/Units 06:20 11:41 WBC (4.50-10.00) 10*3/uL RBC (4.40-5.60) 10*6/uL Hgb (13.0-17.0) g/dL Hct (39.6-50.0) % MCV (80.0-97.0) fL MCH (27.0-32.0) pg RDW (11.5-14.5) % Plt Count (140-440) 10*3/uL Immature Gran # (0.00-0.04) 10*3/uL Neutrophils # (1.80-7.70) 10*3/uL Monocytes # (0.20-1.00) 10*3/uL Eosinophils # (0.04-0.35) 10*3/uL PT (10.0-12.5) sec INR (<1.2) Sodium (137-145) mmol/L BUN (9-20) mg/dL Glucose (74-99) mg/dL POC Glucose (mg/dL) 145 H 136 H (70-110) mg/dL Calcium (8.4-10.2) mg/dL Assessment and Plan Assessment: Relevant labs reviewed today: WBC: 10.90, Hgb: 11.9, PT: 14.3, INR: 1.4, APTT: 28.5, NA: 133, K: 4.3, creatinine: 1.00, BNP: 40657 Assessment/plan: 1.Preoperative clearance Permanent atrial fibrillation Acute on chronic diastolic heart failure - -Patient is postop day 1 -Reviewed cardiology note: Plan for IV Lasix 40 mg every 12 hours, 60 mg received today total. Cardiology also recommends checking daily weights, I's and O's, and monitoring kidney function. Recommend continuing Eliquis 5 mg tw ice daily and weaning oxygen as tolerated. -Target capillary blood glucose between 140-180 2. Hypervolemic hyponatremia - Patient receiving IV Lasix - Re-check in PM - Continue to monitor daily while inpatient 3.CAD/PAD/hypertension/hyperlipidemia -Continue patient's atorvastatin, metoprolol, primidone 4. Right hip fracture s/p direct anterior hip hemiarthroplasty -Pain management per primary team -They recommend weightbearing as tolerated and using a walker to ambulate -PT recommends subacute rehab DVT ppx: Eliquis 5 mg PO BID as above for afib Code Status: Full code I saw and evaluated the patient during the batista and critical portions of this encounter, and discussed the case in detail with the resident author of this note, I agree with the Assessment and Plan, and my changes, if any, are highlighted in blue.
[2025-01-16 17:05] LABS: Glucose,Whole Blood 159 mg/dL (70-110)
[2025-01-16 21:40] LABS: Glucose,Whole Blood 121 mg/dL (70-110)
[2025-01-16] MEDS: FUROSEMIDE 10 MG/ML 4 ML VIAL IV SCH (22:25)
[2025-01-17 06:22] LABS: INR 1.5 (<1.2); Partial Thromboplastin Time 29.9 sec (22.0-30.0); Prothrombin Time 15.4 sec (10.0-12.5)
[2025-01-17 06:48] LABS: Glucose,Whole Blood 137 mg/dL (70-110)
[2025-01-17 08:31] LABS: Basophils # (A) 0.01 X 10*3/uL (0.00-0.10); Basophils % (A) 0.1 %; Eosinophils # (A) 0.05 X 10*3/uL (0.04-0.35); Eosinophils % (A) 0.6 %; HCT 35.0 % (39.6-50.0); HGB 11.4 g/dL (13.0-17.0); Immature Grans, Automated 0.60 %; Lymphocytes # (A) 0.54 X 10*3/uL (0.90-5.00); Lymphocytes % (A) 6.4 %; MCH 31.5 pg (27.0-32.0); MCHC 32.6 g/dL (32.0-37.0); MCV 96.7 FL (80.0-97.0); Monocytes # (A) 0.90 X 10*3/uL (0.20-1.00); Monocytes % (A) 10.6 %; NRBC Per 100 WBC 0 X 10*3/uL (0.00-0.01); Neutrophils # (A) 6.93 X 10*3/uL (1.80-7.70); Neutrophils % (A) 81.7 %; Platelet Count 103 X 10*3/uL (140-440); RBC 3.62 X 10*6/uL (4.40-5.60); RDW 14.8 % (11.5-14.5); WBC 8.48 X 10*3/uL (4.50-10.00)
[2025-01-17 08:44] LABS: Anion Gap 11.00 mmol/L (4.00-12.00); BUN/Creat Ratio 24.73 Ratio (12.00-20.00); Blood Urea Nitrogen 27.2 mg/dL (9.0-27.0); Calcium 7.7 mg/dL (8.7-10.3); Carbon Dioxide 21.0 mmol/L (21.6-31.8); Chloride 103 mmol/L (96-109); Glucose 129 mg/dL (70-110); Potassium 3.9 mmol/L (3.5-5.5); Sodium 135 mmol/L (135-145)
--- NOTE | 2025-01-17 10:25 | P.PN ---
Subjective Progress Note Date: 01/17/25 No acute events overnight. Patient is doing well this morning. The pain in their hip is mild. They deny chest pain or shortness of breath. Objective - Vital Signs Vital signs: Vital Signs Temp 99.9 F H 01/17/25 07:25 Pulse 90 01/17/25 07:25 Resp 19 01/17/25 07:25 BP 111/64 01/17/25 07:25 Pulse Ox 92 L 01/17/25 09:24 FiO2 Intake & Output 01/16/25 01/17/25 01/17/25 18:59 06:59 18:59 Other: Voiding Method Indwelling Catheter Indwelling Catheter - Exam Patient was examined at bedside. Patient is resting comfortably in bed. No apparent distress. They are awake, alert and able to answer questions. Inspection: The surgical dressing is intact, there is no drainage or strikethrough. The skin surrounding the dressing is free of erythema. There is mild swelling in the operative thigh. Palpation: The operative right calf is soft to compression. No calf tenderness. Neurovascular: Operative femoral nerve function is intact. The patient is able to actively plantarflex and dorsiflex their operative ankle and toes. Operative extremity sensation is intact to light touch throughout. Their operative foot appears well perfused, palpable dorsalis pedis pulse, and capillary refill under 2 seconds. - Labs CBC & Chem 7: 01/17/25 05:46 01/17/25 05:46 Labs: Abnormal Lab Results - Last 24 Hours (Table) 01/16/25 01/16/25 01/16/25 Range/Units 05:21 11:41 17:04 RBC (4.40-5.60) X 10*6/uL Hgb (13.0-17.0) g/dL Hct (39.6-50.0) % RDW (11.5-14.5) % Plt Count 99 L (140-440) 10*3/uL Immature Gran # (0.00-0.04) X 10*3/uL Neutrophils # 8.77 H (1.80-7.70) 10*3/uL Lymphocytes # (0.90-5.00) X 10*3/uL Monocytes # 1.11 H (0.20-1.00) 10*3/uL Eosinophils # 0.01 L (0.04-0.35) 10*3/uL PT (10.0-12.5) sec INR (<1.2) Carbon Dioxide (21.6-31.8) mmol/L BUN (9.0-27.0) mg/dL BUN/Creatinine Ratio (12.00-20.00) Ratio Glucose (70-110) mg/dL POC Glucose (mg/dL) 136 H 159 H (70-110) mg/dL Calcium (8.7-10.3) mg/dL 01/16/25 01/17/25 01/17/25 Range/Units 21:39 05:46 05:46 RBC 3.62 L (4.40-5.60) X 10*6/uL Hgb 11.4 L (13.0-17.0) g/dL Hct 35.0 L (39.6-50.0) % RDW 14.8 H (11.5-14.5) % Plt Count 103 L (140-440) 10*3/uL Immature Gran # 0.05 H (0.00-0.04) X 10*3/uL Neutrophils # (1.80-7.70) 10*3/uL Lymphocytes # 0.54 L (0.90-5.00) X 10*3/uL Monocytes # (0.20-1.00) 10*3/uL Eosinophils # (0.04-0.35) 10*3/uL PT (10.0-12.5) sec INR (<1.2) Carbon Dioxide 21.0 L (21.6-31.8) mmol/L BUN 27.2 H (9.0-27.0) mg/dL BUN/Creatinine Ratio 24.73 H (12.00-20.00) Ratio Glucose 129 H (70-110) mg/dL POC Glucose (mg/dL) 121 H (70-110) mg/dL Calcium 7.7 L (8.7-10.3) mg/dL 01/17/25 01/17/25 Range/Units 05:46 06:47 RBC (4.40-5.60) X 10*6/uL Hgb (13.0-17.0) g/dL Hct (39.6-50.0) % RDW (11.5-14.5) % Plt Count (140-440) 10*3/uL Immature Gran # (0.00-0.04) X 10*3/uL Neutrophils # (1.80-7.70) 10*3/uL Lymphocytes # (0.90-5.00) X 10*3/uL Monocytes # (0.20-1.00) 10*3/uL Eosinophils # (0.04-0.35) 10*3/uL PT 15.4 H (10.0-12.5) sec INR 1.5 H (<1.2) Carbon Dioxide (21.6-31.8) mmol/L BUN (9.0-27.0) mg/dL BUN/Creatinine Ratio (12.00-20.00) Ratio Glucose (70-110) mg/dL POC Glucose (mg/dL) 137 H (70-110) mg/dL Calcium (8.7-10.3) mg/dL Assessment and Plan Assessment: Postop day #2 01/15/2025 status post Right direct anterior hip hemiarthroplasty for Displaced right subcapital femoral neck fracture Plan: Weight-bear as tolerated on the operative extremity. Use a walker to ambulate. Leave surgical dressing in place. We appreciate internal medicine for perioperative medical management. Disposition: Physical therapy recommended patient be discharged to rehab at time of discharge, patient is cleared to discharge from an orthopedic standpoint when cleared by internal medicine. Paper prescription for [place] and start form placed in patient's chart on 01/17.
[2025-01-17] MEDS: HYDROcodone/APAP 10-325MG 1 EACH TAB PO PRN (10:54)
[2025-01-17] MEDS: FUROSEMIDE 10 MG/ML 10 ML VIAL IV SCH (11:03)
[2025-01-17 12:08] LABS: Glucose,Whole Blood 139 mg/dL (70-110)
--- NOTE | 2025-01-17 12:12 | P.PN ---
Subjective HISTORY OF PRESENT ILLNESS: 84-year-old with PMH of CAD status post PCI hypertension dyslipidemia PAD permanent atrial fibrillation on warfarin therapy. Known to Dr. Reyes He had a mechanical fall at home and thereafter he severe right hip fracture. For this he underwent surgery today. Cardiology was consulted for perioperative and postoperative management along with his prior cardiovascular history. He denies any symptoms of chest pain chest pressure palpitation lightheadedness dizziness. She denies any feeling of dizziness lately. Denies any symptoms of syncope or passing out. Labs hemoglobin 12.8, BUN 19, creatinine 1, A1c 5.9, NT-proBNP 8000 EKG shows atrial fibrillation, heart rate 58 bpm, right bundle branch block Chest x-ray from admission does not show significant signs of consolidation or congestion. Home medications lisinopril 10, warfarin, Lasix 20 daily, simvastatin 20 daily, metoprolol 12.5 mg twice daily, 01/16/2025 Patient examined this morning at the bedside. He denies chest pain or pressure. He reports mild shortness of breath. He was on 5 L nasal cannula this morning, per nursing she was able to wean it to 3 L nasal cannula. proBNP is 11,300. 01/17/2025 Patient examined this morning at bedside. Patient states his breathing has significantly improved. He denies any chest pain or pressure. Vital signs are stable. Patient is still requiring 3 L nasal cannula to maintain oxygen saturations greater than 92%. PHYSICAL EXAM: VITAL SIGNS: Reviewed. GENERAL: Well-developed in no acute distress. NECK: Supple. No JVD or thyromegaly LUNGS: Respirations even and unlabored. Lungs essentially clear to auscultation bilaterally. HEART: Irregular rate and rhythm. S1 and S2 heard. EXTREMITIES: Normal range of motion. No clubbing or cyanosis. Peripheral pulses intact. Trace lower extremity edema ASSESSMENT: Mechanical fall fall Right hip fracture status post hemiarthroplasty 01/15/2025 Acute hypoxic respiratory failure requiring supplemental oxygen Acute on chronic heart failure, type unknown, no echo available in EMR Coronary artery disease with previous stenting Hypertension Hyperlipidemia Persistent atrial fibrillation Peripheral arterial disease History of COPD PLAN: Continue IV Lasix to 40 mg every 12 hours for an additional 24 hours. Anticipate transitioning to oral diuretics tomorrow Daily weights, accurate intake and output, monitoring of kidney function Continue anticoagulation with Eliquis Continue additional cardiac medications Wean oxygen as tolerated Further recommendations pending patient course Nurse practitioner note has been reviewed by physician. Signing provider agrees with the documented findings, assessment, and plan of care documented by DEPARTMENT ASSISTANT as a scribe. Objective - Vital Signs Vital signs: Vital Signs Temp 99.9 F H 01/17/25 07:25 Pulse 90 01/17/25 07:25 Resp 19 01/17/25 07:25 BP 111/64 01/17/25 07:25 Pulse Ox 92 L 01/17/25 09:24 FiO2 Intake & Output 01/16/25 01/17/25 01/17/25 18:59 06:59 18:59 Output Total 750 Balance -750 Output: Urine 750 Uretheral (Jay) 750 Other: Voiding Method Indwelling Catheter Indwelling Catheter - Labs CBC & Chem 7: 01/17/25 05:46 01/17/25 05:46 Labs: Abnormal Lab Results - Last 24 Hours (Table) 01/16/25 01/16/25 01/17/25 Range/Units 17:04 21:39 05:46 RBC 3.62 L (4.40-5.60) X 10*6/uL Hgb 11.4 L (13.0-17.0) g/dL Hct 35.0 L (39.6-50.0) % RDW 14.8 H (11.5-14.5) % Plt Count 103 L (140-440) X 10*3/uL Immature Gran # 0.05 H (0.00-0.04) X 10*3/uL Lymphocytes # 0.54 L (0.90-5.00) X 10*3/uL PT (10.0-12.5) sec INR (<1.2) Carbon Dioxide (21.6-31.8) mmol/L BUN (9.0-27.0) mg/dL BUN/Creatinine Ratio (12.00-20.00) Ratio Glucose (70-110) mg/dL POC Glucose (mg/dL) 159 H 121 H (70-110) mg/dL Calcium (8.7-10.3) mg/dL 01/17/25 01/17/25 01/17/25 Range/Units 05:46 05:46 06:47 RBC (4.40-5.60) X 10*6/uL Hgb (13.0-17.0) g/dL Hct (39.6-50.0) % RDW (11.5-14.5) % Plt Count (140-440) X 10*3/uL Immature Gran # (0.00-0.04) X 10*3/uL Lymphocytes # (0.90-5.00) X 10*3/uL PT 15.4 H (10.0-12.5) sec INR 1.5 H (<1.2) Carbon Dioxide 21.0 L (21.6-31.8) mmol/L BUN 27.2 H (9.0-27.0) mg/dL BUN/Creatinine Ratio 24.73 H (12.00-20.00) Ratio Glucose 129 H (70-110) mg/dL POC Glucose (mg/dL) 137 H (70-110) mg/dL Calcium 7.7 L (8.7-10.3) mg/dL
[2025-01-17] MEDS: HYDROmorphone 0.5 MG/0.5 ML SYRINGE IVP PRN (12:23)
--- NOTE | 2025-01-17 14:30 | P.PN ---
Subjective Progress Note Date: 01/17/25 Patient reports feeling "despondent" today. Also feels very cold. Denies any new symptoms overnight. Denies any current severe pain. Objective - Vital Signs Vital signs: Vital Signs Temp 99.9 F H 01/17/25 07:25 Pulse 90 01/17/25 07:25 Resp 19 01/17/25 07:25 BP 111/64 01/17/25 07:25 Pulse Ox 92 L 01/17/25 09:24 FiO2 Intake & Output 01/16/25 01/17/25 01/17/25 18:59 06:59 18:59 Output Total 750 Balance -750 Output: Urine 750 Uretheral (Jay) 750 Other: Voiding Method Indwelling Catheter Indwelling Catheter - Exam General: No acute distress. Lying back in bed. Derm: warm, dry Head: atraumatic, normocephalic, symmetric Mouth: Pharyngeal erythema noted. Mucous membranes appeared moist on exam. Cardiovascular: Irregularly irregular rhythm. No murmur. Mild edema bilaterally to lower extremities with wrinkled skin. Lungs: Mild Rales noted to lungs bilaterally. Abdominal: Nondistended. Nontender to palpation in all 4 quadrants Ext: no gross muscle atrophy. no contractures Neuro: no focal neuro deficits Psych: Alert and oriented - Labs CBC & Chem 7: 01/17/25 05:46 01/17/25 05:46 Labs: Abnormal Lab Results - Last 24 Hours (Table) 01/16/25 01/16/25 01/17/25 Range/Units 17:04 21:39 05:46 RBC 3.62 L (4.40-5.60) X 10*6/uL Hgb 11.4 L (13.0-17.0) g/dL Hct 35.0 L (39.6-50.0) % RDW 14.8 H (11.5-14.5) % Plt Count 103 L (140-440) X 10*3/uL Immature Gran # 0.05 H (0.00-0.04) X 10*3/uL Lymphocytes # 0.54 L (0.90-5.00) X 10*3/uL PT (10.0-12.5) sec INR (<1.2) Carbon Dioxide (21.6-31.8) mmol/L BUN (9.0-27.0) mg/dL BUN/Creatinine Ratio (12.00-20.00) Ratio Glucose (70-110) mg/dL POC Glucose (mg/dL) 159 H 121 H (70-110) mg/dL Calcium (8.7-10.3) mg/dL 01/17/25 01/17/25 01/17/25 Range/Units 05:46 05:46 06:47 RBC (4.40-5.60) X 10*6/uL Hgb (13.0-17.0) g/dL Hct (39.6-50.0) % RDW (11.5-14.5) % Plt Count (140-440) X 10*3/uL Immature Gran # (0.00-0.04) X 10*3/uL Lymphocytes # (0.90-5.00) X 10*3/uL PT 15.4 H (10.0-12.5) sec INR 1.5 H (<1.2) Carbon Dioxide 21.0 L (21.6-31.8) mmol/L BUN 27.2 H (9.0-27.0) mg/dL BUN/Creatinine Ratio 24.73 H (12.00-20.00) Ratio Glucose 129 H (70-110) mg/dL POC Glucose (mg/dL) 137 H (70-110) mg/dL Calcium 7.7 L (8.7-10.3) mg/dL 01/17/25 Range/Units 12:06 RBC (4.40-5.60) X 10*6/uL Hgb (13.0-17.0) g/dL Hct (39.6-50.0) % RDW (11.5-14.5) % Plt Count (140-440) X 10*3/uL Immature Gran # (0.00-0.04) X 10*3/uL Lymphocytes # (0.90-5.00) X 10*3/uL PT (10.0-12.5) sec INR (<1.2) Carbon Dioxide (21.6-31.8) mmol/L BUN (9.0-27.0) mg/dL BUN/Creatinine Ratio (12.00-20.00) Ratio Glucose (70-110) mg/dL POC Glucose (mg/dL) 139 H (70-110) mg/dL Calcium (8.7-10.3) mg/dL Assessment and Plan Assessment: Relevant labs reviewed today: WBC: 8.48, Hgb: 11.4, PT: 15.4, INR: 1.5, APTT: 29.9, NA: 135, K: 3.9, creatinine: 1.1, Ca: 7.7 Assessment/plan: 1.Preoperative clearance Permanent atrial fibrillation Acute on chronic diastolic heart failure Acute hypoxic respiratory failure #post-op day 2 -Patient's INR 1.5 this morning and underwent surgery successfully -Continue Eliquis 5 mg p.o. twice daily -Per cardiology, continue IV Lasix 40 mg every 12 hours. -Continue checking daily weights, I's and O's, and weaning oxygen as tolerated. -Target capillary blood glucose between 140-180 -Currently on 3L nasal cannula, attempt to wean down, may possibly need to evaluate for home O2 assessment 2. Hypervolemic hyponatremia (resolved) - Patient receiving IV Lasix 40 mg q12hr - Continue to monitor daily while inpatient 3. Mild Hypocalcemia (asymptomatic) - Oral 500 mg TID calcium carbonate ordered 3.CAD/PAD/hypertension/hyperlipidemia -Continue patient's atorvastatin, metoprolol, primidone 4. Right hip fracture s/p direct anterior hip hemiarthroplasty -Pain management per primary team -They recommend weightbearing as tolerated and using a walker to ambulate -PT recommending subacute rehab -Remove Jay catheter when patient is ambulatory. DVT ppx: Eliquis 5 mg PO BID as above for afib Code Status: Full code I saw and evaluated the patient during the batista and critical portions of this encounter, and discussed the case in detail with the resident author of this note, I agree with the Assessment and Plan, and my changes, if any, are highlighted in blue. Patient appears to be volume overloaded still, still requiring 2 to 3 L of nasal cannula to saturate 92% when he came in at 97% on room air. Differential includes ongoing volume overload from heart failure exacerbation versus atelectasis. Repeat patient's chest x-ray today, BNP tomorrow morning, continue to obtain accurate I's and O's and daily weights. Encourage incentive spirome try and PT OT
[2025-01-17] MEDS: CALCIUM CARBONATE 500 MG CHEWABLE PO SCH (15:26)
--- NOTE | 2025-01-17 16:01 | XR ---
EXAMINATION TYPE: XR chest 1V DATE OF EXAM: 01/17/2025 COMPARISON: 01/14/2025 CLINICAL INDICATION: Male, 84 years old with history of hypoxia; TECHNIQUE: Single frontal view of the chest is obtained. FINDINGS: Heart mildly enlarged. Patient rotated towards the right altering the normal cardiac media stinal contours. Increasing patchy bilateral lower lung opacities. Ongoing background diffuse interst itial density. IMPRESSION: 1. Cardiomegaly and ongoing interstitial densities. Correlate for possible CHF with pulmonary vascula r congestion. 2. Developing bibasilar airspace disease, either relating to patchy pulmonary edema versus pneumoniti s. [facility], Workstation: [facility], 01/17/2025 3:59 PM
[2025-01-17 16:51] LABS: Glucose,Whole Blood 118 mg/dL (70-110)
[2025-01-17] MEDS: FUROSEMIDE 10 MG/ML 4 ML VIAL IV SCH (19:54)
[2025-01-17 20:44] LABS: Glucose,Whole Blood 197 mg/dL (70-110)
[2025-01-18 06:04] LABS: Glucose,Whole Blood 160 mg/dL (70-110)
[2025-01-18 06:43] LABS: Basophils # (A) 0.02 10*3/uL (0.00-0.10); Basophils % (A) 0.3 %; Eosinophils # (A) 0.09 10*3/uL (0.04-0.35); Eosinophils % (A) 1.3 %; HCT 31.2 % (39.6-50.0); HGB 10.5 g/dL (13.0-17.0); Immature Platelet Fraction 5.1 % (1.1-6.1); Lymphocytes # (A) 0.56 10*3/uL (0.90-5.00); Lymphocytes % (A) 8.3 %; MCH 31.7 pg (27.0-32.0); MCHC 33.7 g/dL (32.0-37.0); MCV 94.3 fL (80.0-97.0); Monocytes # (A) 0.71 10*3/uL (0.20-1.00); Monocytes % (A) 10.5 %; Neutrophils # (A) 5.33 10*3/uL (1.80-7.70); Neutrophils % (A) 79.3 %; Platelet Count 105 10*3/uL (140-440); RBC 3.31 10*6/uL (4.40-5.60); RDW 14.4 % (11.5-14.5); WBC 6.73 10*3/uL (4.50-10.00)
[2025-01-18 06:54] LABS: African American GFR (CKD) >90 (>60 ml/min/1.73 sqM); Anion Gap 8 mmol/L; Blood Urea Nitrogen 33 mg/dL (9-20); Calcium 7.9 mg/dL (8.4-10.2); Carbon Dioxide 24 mmol/L (22-30); Chloride 101 mmol/L (98-107); Glucose 146 mg/dL (74-99); Magnesium 2.1 mg/dL (1.6-2.3); Non-African American GFR(CKD) 78 (>60 ml/min/1.73 sqM); Potassium 3.5 mmol/L (3.5-5.1); Sodium 133 mmol/L (137-145)
[2025-01-18 06:55] LABS: INR 1.4 (<1.2); Partial Thromboplastin Time 31.5 sec (22.0-30.0); Prothrombin Time 14.4 sec (10.0-12.5)
[2025-01-18] MEDS: POTASSIUM CHLORIDE ER 20 MEQ TAB.ER PO STA (10:24)
--- NOTE | 2025-01-18 10:57 | P.PN ---
Subjective Progress Note Date: 01/18/25 No acute events overnight. Patient is doing well this morning. The pain in their hip is minimal at rest and worse with activity. They deny chest pain or shortness of breath. Objective - Vital Signs Vital signs: Vital Signs Temp 97.9 F 01/18/25 07:20 Pulse 80 01/18/25 07:20 Resp 16 01/18/25 08:00 BP 101/63 01/18/25 07:20 Pulse Ox 95 01/18/25 09:25 FiO2 Intake & Output 01/17/25 01/18/25 01/18/25 18:59 06:59 18:59 Output Total 1700 925 200 Balance -1700 -925 -200 Output: Urine 1700 925 200 Uretheral (Jay) 1700 Other: Voiding Method Indwelling Catheter Urinal # Bowel Movements 1 1 - Exam Patient was examined at bedside. Patient is resting comfortably in bed. No apparent distress. They are awake, alert and able to answer questions. Inspection: The surgical dressing is intact, there is no drainage. Proximal dressing with small area of strikethrough. The skin surrounding the dressing is free of erythema. There is mild swelling in the operative thigh. Palpation: The operative right calf is soft to compression. No calf tenderness. There is some edema in the right calf. Neurovascular: Operative femoral nerve function is intact. The patient is able to actively plantarflex and dorsiflex their operative ankle and toes. Operative extremity sensation is intact to light touch throughout. Their operative foot appears well perfused, palpable dorsalis pedis pulse, and capillary refill under 2 seconds. - Labs CBC & Chem 7: 01/18/25 06:09 01/18/25 06:09 Labs: Abnormal Lab Results - Last 24 Hours (Table) 01/17/25 01/17/25 01/17/25 Range/Units 12:06 16:46 20:43 RBC (4.40-5.60) 10*6/uL Hgb (13.0-17.0) g/dL Hct (39.6-50.0) % Plt Count (140-440) 10*3/uL Lymphocytes # (0.90-5.00) 10*3/uL PT (10.0-12.5) sec INR (<1.2) APTT (22.0-30.0) sec Sodium (137-145) mmol/L BUN (9-20) mg/dL Glucose (74-99) mg/dL POC Glucose (mg/dL) 139 H 118 H 197 H (70-110) mg/dL Calcium (8.4-10.2) mg/dL 01/18/25 01/18/25 01/18/25 Range/Units 06:03 06:09 06:09 RBC 3.31 L (4.40-5.60) 10*6/uL Hgb 10.5 L (13.0-17.0) g/dL Hct 31.2 L (39.6-50.0) % Plt Count 105 L (140-440) 10*3/uL Lymphocytes # 0.56 L (0.90-5.00) 10*3/uL PT (10.0-12.5) sec INR (<1.2) APTT (22.0-30.0) sec Sodium 133 L (137-145) mmol/L BUN 33 H (9-20) mg/dL Glucose 146 H (74-99) mg/dL POC Glucose (mg/dL) 160 H (70-110) mg/dL Calcium 7.9 L (8.4-10.2) mg/dL 01/18/25 Range/Units 06:09 RBC (4.40-5.60) 10*6/uL Hgb (13.0-17.0) g/dL Hct (39.6-50.0) % Plt Count (140-440) 10*3/uL Lymphocytes # (0.90-5.00) 10*3/uL PT 14.4 H (10.0-12.5) sec INR 1.4 H (<1.2) APTT 31.5 H (22.0-30.0) sec Sodium (137-145) mmol/L BUN (9-20) mg/dL Glucose (74-99) mg/dL POC Glucose (mg/dL) (70-110) mg/dL Calcium (8.4-10.2) mg/dL Assessment and Plan Assessment: Postop day #3 01/15/2025 status post Right direct anterior hip hemiarthroplasty for Displaced right subcapital femoral neck fracture Multiple medical problems Plan: Weight-bear as tolerated on the operative extremity. Use a walker to ambulate. Leave surgical dressing in place. We appreciate internal medicine for perioperative medical management. Disposition: Physical therapy recommended patient be discharged to rehab at time of discharge, patient is cleared to discharge from an orthopedic standpoint when cleared by internal medicine. Paper prescription for [place] and start form placed in patient's chart on 01/17/2025.
[2025-01-18 12:16] LABS: Glucose,Whole Blood 145 mg/dL (70-110)
--- NOTE | 2025-01-18 12:49 | P.PN ---
Subjective HISTORY OF PRESENT ILLNESS: 84-year-old with PMH of CAD status post PCI hypertension dyslipidemia PAD permanent atrial fibrillation on warfarin therapy. Known to Dr. Reyes He had a mechanical fall at home and thereafter he severe right hip fracture. For this he underwent surgery today. Cardiology was consulted for perioperative and postoperative management along with his prior cardiovascular history. He denies any symptoms of chest pain chest pressure palpitation lightheadedness dizziness. She denies any feeling of dizziness lately. Denies any symptoms of syncope or passing out. Labs hemoglobin 12.8, BUN 19, creatinine 1, A1c 5.9, NT-proBNP 8000 EKG shows atrial fibrillation, heart rate 58 bpm, right bundle branch block Chest x-ray from admission does not show significant signs of consolidation or congestion. Home medications lisinopril 10, warfarin, Lasix 20 daily, simvastatin 20 daily, metoprolol 12.5 mg twice daily, 01/16/2025 Patient examined this morning at the bedside. He denies chest pain or pressure. He reports mild shortness of breath. He was on 5 L nasal cannula this morning, per nursing she was able to wean it to 3 L nasal cannula. proBNP is 11,300. 01/17/2025 Patient examined this morning at bedside. Patient states his breathing has significantly improved. He denies any chest pain or pressure. Vital signs are stable. Patient is still requiring 3 L nasal cannula to maintain oxygen saturations greater than 92%. 01/18/2025 Patient examined this morning at bedside. Patient is working with physical therapy and is sitting up in the chair. He denies any chest pain or pressure. He reports improvement in his shortness of breath. He remains on IV Lasix. Chest x-ray yesterday completed revealing cardiomegaly and ongoing interstitial densities. Correlate for CHF with pulmonary vascular congestion. Developing bibasilar airspace disease either related to patchy pulmonary edema versus pneumonitis. PHYSICAL EXAM: VITAL SIGNS: Reviewed. GENERAL: Well-developed in no acute distress. NECK: Supple. No JVD or thyromegaly LUNGS: Respirations even and unlabored. Lungs essentially clear to auscultation bilaterally. HEART: Irregular rate and rhythm. S1 and S2 heard. EXTREMITIES: Normal range of motion. No clubbing or cyanosis. Peripheral pulses intact. No lower extremity edema ASSESSMENT: Mechanical fall fall Right hip fracture status post hemiarthroplasty 01/15/2025 Acute hypoxic respiratory failure requiring supplemental oxygen Acute on chronic heart failure, type unknown, no echo available in EMR Coronary artery disease with previous stenting Hypertension Hyperlipidemia Persistent atrial fibrillation Peripheral arterial disease History of COPD PLAN: Continue IV Lasix to 40 mg every 12 hours. Give 1 dose of Zaroxolyn 5 mg. Daily weights, accurate intake and output, monitoring of kidney function Continue anticoagulation with Eliquis Continue additional cardiac medications Wean oxygen as tolerated Encourage use of incentive spirometer Further recommendations pending patient course Nurse practitioner note has been reviewed by physician. Signing provider agrees with the documented findings, assessment, and plan of care documented by CLERICAL METHODS ANALYST as a scribe. Objective - Vital Signs Vital signs: Vital Signs Temp 97.9 F 01/18/25 07:20 Pulse 80 01/18/25 07:20 Resp 16 01/18/25 08:00 BP 101/63 01/18/25 07:20 Pulse Ox 95 01/18/25 09:25 FiO2 Intake & Output 01/17/25 01/18/25 01/18/25 18:59 06:59 18:59 Output Total 1700 925 200 Balance -1700 -925 -200 Output: Urine 1700 925 200 Uretheral (Jay) 1700 Other: Voiding Method Indwelling Catheter Urinal # Bowel Movements 1 1 - Labs CBC & Chem 7: 01/18/25 06:09 01/18/25 06:09 Labs: Abnormal Lab Results - Last 24 Hours (Table) 01/17/25 01/17/25 01/18/25 Range/Units 16:46 20:43 06:03 RBC (4.40-5.60) 10*6/uL Hgb (13.0-17.0) g/dL Hct (39.6-50.0) % Plt Count (140-440) 10*3/uL Lymphocytes # (0.90-5.00) 10*3/uL PT (10.0-12.5) sec INR (<1.2) APTT (22.0-30.0) sec Sodium (137-145) mmol/L BUN (9-20) mg/dL Glucose (74-99) mg/dL POC Glucose (mg/dL) 118 H 197 H 160 H (70-110) mg/dL Calcium (8.4-10.2) mg/dL 01/18/25 01/18/2501/18/25 Range/Units 06:09 06:09 06:09 RBC 3.31 L (4.40-5.60) 10*6/uL Hgb 10.5 L (13.0-17.0) g/dL Hct 31.2 L (39.6-50.0) % Plt Count 105 L (140-440) 10*3/uL Lymphocytes # 0.56 L (0.90-5.00) 10*3/uL PT 14.4 H (10.0-12.5) sec INR 1.4 H (<1.2) APTT 31.5 H (22.0-30.0) sec Sodium 133 L (137-145) mmol/L BUN 33 H (9-20) mg/dL Glucose 146 H (74-99) mg/dL POC Glucose (mg/dL) (70-110) mg/dL Calcium 7.9 L (8.4-10.2) mg/dL 01/18/25 Range/Units 12:10 RBC (4.40-5.60) 10*6/uL Hgb (13.0-17.0) g/dL Hct (39.6-50.0) % Plt Count (140-440) 10*3/uL Lymphocytes # (0.90-5.00) 10*3/uL PT (10.0-12.5) sec INR (<1.2) APTT (22.0-30.0) sec Sodium (137-145) mmol/L BUN (9-20) mg/dL Glucose (74-99) mg/dL POC Glucose (mg/dL) 145 H (70-110) mg/dL Calcium (8.4-10.2) mg/dL
[2025-01-18 17:16] LABS: Glucose,Whole Blood 107 mg/dL (70-110)
--- NOTE | 2025-01-18 17:31 | P.PN ---
Subjective The patient reports doing well today overall. Seems in better spirits. Mentions he has been up and out of bed and sitting in his chair a couple of times but has not been walking around a lot. Denies any new pain or symptoms overnight. Objective - Vital Signs Vital signs: Vital Signs Temp 97.9 F 01/18/25 15:26 Pulse 67 01/18/25 15:26 Resp 18 01/18/25 15:26 BP 102/61 01/18/25 15:26 Pulse Ox 100 01/18/25 15:26 FiO2 Intake & Output 01/17/25 01/18/25 01/18/25 18:59 06:59 18:59 Output Total 1700 925 200 Balance -1700 -925 -200 Output: Urine 1700 925 200 Uretheral (Jay) 1700 Other: Voiding Method Indwelling Catheter Urinal # Bowel Movements 1 1 - Exam General: No acute distress. Lying back in bed. Derm: warm, dry Head: atraumatic, normocephalic, symmetric Mouth: Pharyngeal erythema noted. Mucous membranes appeared moist on exam. Cardiovascular: Irregularly irregular rhythm. No murmur. Mild edema bilaterally to lower extremities with wrinkled skin. Lungs: Mild Rales noted to lungs bilaterally. Abdominal: Nondistended. Nontender to palpation in all 4 quadrants Ext: no gross muscle atrophy. no contractures Neuro: no focal neuro deficits Psych: Alert and oriented - Labs CBC & Chem 7: 01/18/25 06:09 01/18/25 06:09 Labs: Abnormal Lab Results - Last 24 Hours (Table) 01/17/25 01/18/25 01/18/25 Range/Units 20:43 06:03 06:09 RBC (4.40-5.60) 10*6/uL Hgb (13.0-17.0) g/dL Hct (39.6-50.0) % Plt Count (140-440) 10*3/uL Lymphocytes # (0.90-5.00) 10*3/uL PT (10.0-12.5) sec INR (<1.2) APTT (22.0-30.0) sec Sodium 133 L (137-145) mmol/L BUN 33 H (9-20) mg/dL Glucose 146 H (74-99) mg/dL POC Glucose (mg/dL) 197 H 160 H (70-110) mg/dL Calcium 7.9 L (8.4-10.2) mg/dL 01/18/25 01/18/25 01/18/25 Range/Units 06:09 06:09 12:10 RBC 3.31 L (4.40-5.60) 10*6/uL Hgb 10.5 L (13.0-17.0) g/dL Hct 31.2 L (39.6-50.0) % Plt Count 105 L (140-440) 10*3/uL Lymphocytes # 0.56 L (0.90-5.00) 10*3/uL PT 14.4 H (10.0-12.5) sec INR 1.4 H (<1.2) APTT 31.5 H (22.0-30.0) sec Sodium (137-145) mmol/L BUN (9-20) mg/dL Glucose (74-99) mg/dL POC Glucose (mg/dL) 145 H (70-110) mg/dL Calcium (8.4-10.2) mg/dL Assessment and Plan Assessment: Relevant labs reviewed today: WBC: 6.7, Hgb: 10.5, PT: 14.4, INR: 1.4, APTT: 31.5, NA: 133, K: 3.5, creatinine: 0.89, Ca: 7.9 Assessment/plan: 1. Acute hypoxic respiratory failure secondary to acute on chronic diastolic heart failure Permanent atrial fibrillation #post-op day 3 -Continue Eliquis 5 mg p.o. twice daily -Per cardiology, continue IV Lasix 40 mg every 12 hours. -Patient given 1 dose of metolazone 5 mg p.o. today -Continue checking daily weights, I's and O's, and weaning oxygen as tolerated. -Currently on 4L nasal cannula, attempt to wean down, may possibly need to evaluate for home O2 assessment -Encourage use of incentive spirometer 2. Hypervolemic hyponatremia - Patient receiving IV Lasix 40 mg q12hr - Continue to monitor daily while inpatient 3. Mild Hypocalcemia, asymptomatic - Oral 500 mg TID calcium carbonate ordered 3.CAD/PAD/hypertension/hyperlipidemia -Continue patient's atorvastatin, metoprolol, primidone 4. Right hip fracture s/p direct anterior hip hemiarthroplasty -Pain management per primary team -They recommend weightbearing as tolerated and using a walker to ambulate -PT recommending subacute rehab DVT ppx: Eliquis 5 mg PO BID as above for afib Code Status: Full code I have seen and evaluated the patient today. Discussed with the resident and agree with the residents finding and plan as documented in the resident's note. Changes highlighted in blue font.
[2025-01-18 20:03] LABS: Glucose,Whole Blood 115 mg/dL (70-110)
[2025-01-19 06:07] LABS: Glucose,Whole Blood 133 mg/dL (70-110)
[2025-01-19 06:18] LABS: Basophils # (A) 0.02 10*3/uL (0.00-0.10); Basophils % (A) 0.3 %; Eosinophils # (A) 0.16 10*3/uL (0.04-0.35); Eosinophils % (A) 2.2 %; HCT 32.2 % (39.6-50.0); HGB 11.3 g/dL (13.0-17.0); Immature Platelet Fraction 5.0 % (1.1-6.1); Lymphocytes # (A) 0.71 10*3/uL (0.90-5.00); Lymphocytes % (A) 9.7 %; MCH 32.8 pg (27.0-32.0); MCHC 35.1 g/dL (32.0-37.0); MCV 93.3 fL (80.0-97.0); Monocytes # (A) 0.90 10*3/uL (0.20-1.00); Monocytes % (A) 12.3 %; Neutrophils # (A) 5.49 10*3/uL (1.80-7.70); Neutrophils % (A) 75.2 %; Platelet Count 141 10*3/uL (140-440); RBC 3.45 10*6/uL (4.40-5.60); RDW 14.3 % (11.5-14.5); WBC 7.30 10*3/uL (4.50-10.00)
[2025-01-19 06:24] LABS: INR 1.4 (<1.2); Partial Thromboplastin Time 27.8 sec (22.0-30.0); Prothrombin Time 14.3 sec (10.0-12.5)
[2025-01-19 06:47] LABS: African American GFR (CKD) 87 (>60 ml/min/1.73 sqM); Anion Gap 7 mmol/L; Blood Urea Nitrogen 36 mg/dL (9-20); Calcium 8.1 mg/dL (8.4-10.2); Carbon Dioxide 28 mmol/L (22-30); Chloride 98 mmol/L (98-107); Glucose 115 mg/dL (74-99); Magnesium 2.1 mg/dL (1.6-2.3); Non-African American GFR(CKD) 75 (>60 ml/min/1.73 sqM); Potassium 3.8 mmol/L (3.5-5.1); Sodium 133 mmol/L (137-145)
[2025-01-19 07:53] VITALS: BP 105/62; PULSE 86; RESP 17; TEMP 98.1
--- NOTE | 2025-01-19 08:24 | P.DS ---
Providers Date of admission: 01/14/25 04:05 Attending physician: Darryl Mijares Consults: 01/14/25 04:03 Consult Physician Stat Consulting Provider: Lashawn Herrera Consult Reason/Comments: Displaced right femoral neck fracture Do you want consulting provider notified?: Yes, Notify in am 01/14/25 13:07 Consult Physician Routine Consulting Provider: Errol Kulkarni Consult Reason/Comments: Heart failure, permanent atrial fibrillation, CAD Do you want consulting provider notified?: Yes Primary care physician: [facility] Course: HPI: The patient is a very pleasant 84-year-old male with multiple medical problems including atrial fibrillation on Coumadin and COPD who is presently admitted under my care with a right hip fracture. The patient was seen at bedside this morning with his and son. According to the family the patient was walking out to his car when he lost his balance and fell injuring his right hip. He was brought to the emergency department where x-rays showed a displaced right hip fracture. He was admitted under my care. This morning the patient is complaining of isolated pain in his right hip. He denies any prior hip or thigh pain before his fall. The patient's son states that he does not get around well at baseline and has an unsteady gait. On 01/15/2025 patient underwent right direct anterior hip hemiarthroplasty for displaced right subcapital femoral neck fracture by Dr. Mijares. The patient tolerated the procedure well. The patient was transferred to the orthopedic floor. The patient's medical problems were managed by the internal medicine doctors. Patient worked with physical therapy and it was determined the patient will need transferred to rehab at time of discharge. The patient's pain has been well-controlled. The patient was seen and examined this morning with Dr. Mijares. No acute events overnight per patient . Patient is doing well this morning. The pain in their hip is minimal at rest and worse with activity. They deny chest pain or shortness of breath. Patient was examined at bedside. Patient is resting comfortably in bed. No apparent distress. They are awake, alert and able to answer questions. Inspection: The surgical dressing is intact, there is no drainage. Proximal dressing with small area of strikethrough. The skin surrounding the dressing is free of erythema. There is mild swelling in the operative thigh. Palpation: The operative right calf is soft to compression. No calf tenderness. There is some edema in the right calf. Neurovascular: Operative femoral nerve function is intact. The patient is able to actively plantarflex and dorsiflex their operative ankle and toes. Operative extremity sensation is intact to light touch throughout. Their operative foot appears well perfused, palpable dorsalis pedis pulse, and capillary refill under 2 seconds. Paper prescription for oral [place] and start form placed in the patient's chart. The patient is cleared from an orthopedic standpoint when cleared by internal medicine and arrangements have been made for transfer to rehab. Dictation was produced using [employer] dictation software, please excuse any grammatical, word or spelling errors. Assessment: Postop day #4 01/15/2025 status post Right direct anterior hip hemiarthroplasty for Displaced right subcapital femoral neck fracture Multiple medical problems Patient Condition at Discharge: Fair Plan - Discharge Summary Discharge Rx Participant: No New Discharge Prescriptions: New HYDROcodone/APAP 5-325MG [[place] 5] 1 - 2 each PO Q6HR PRN #24 tab PRN Reason: Pain Sennosides-Docusate Sodium [Senokot-S] 1 tab PO BID PRN #60 tablet PRN Reason: Constipation Omeprazole 20 mg PO DAILY #30 tab No Action lisinopriL [Zestril] 10 mg PO HS Furosemide [Lasix] 20 mg PO DAILY Simvastatin 20 mg PO HS Warfarin [Coumadin] 2.5 mg PO SUTUWETHFRSA@2100 Multivitamins, Thera [Multivitamin (formulary)] 1 tab PO DAILY Primidone [Mysoline] 50 mg PO HS Metoprolol Tartrate [Lopressor] 12.5 mg PO BID Thiamine [Vitamin B-1] 100 mg PO DAILY Warfarin [Coumadin] 1.25 mg PO MO@2100 Cyanocobalamin (Vitamin B-12) [Vitamin B-12] 1,000 mcg PO DAILY Discharge Medication List Furosemide [Lasix] 20 mg PO DAILY 06/10/19 [History] Multivitamins, Thera [Multivitamin (formulary)] 1 tab PO DAILY 06/10/19 [History] Simvastatin 20 mg PO HS 06/10/19 [History] Warfarin [Coumadin] 2.5 mg PO SUTUWETHFRSA@2100 06/10/19 [History] lisinopriL [Zestril] 10 mg PO HS 06/10/19 [History] Warfarin [Coumadin] 1.25 mg PO MO@2100 10/29/21 [History] Cyanocobalamin (Vitamin B-12) [Vitamin B-12] 1,000 mcg PO DAILY 01/14/25 [History] Metoprolol Tartrate [Lopressor] 12.5 mg PO BID 01/14/25 [History] Primidone [Mysoline] 50 mg PO HS 01/14/25 [History] Thiamine [Vitamin B-1] 100 mg PO DAILY 01/14/25 [History] HYDROcodone/APAP 5-325MG [[place] 5] 1 - 2 each PO Q6HR PRN #24 tab 01/17/25 [Rx] Omeprazole 20 mg PO DAILY #30 tab 01/17/25 [Rx] Sennosides-Docusate Sodium [Senokot-S] 1 tab PO BID PRN #60 tablet 01/17/25 [Rx] Follow up Appointment(s)/Referral(s): Mayur Ppoe DO [Primary Care Provider] - 1-2 days Darryl Mijares MD [Medical Doctor] - 2 Weeks Activity/Diet/Wound Care/Special Instructions: [facility] and [address] [facility] have services for seniors: #[phone] or #[phone] 1. Weight-bear as tolerated on your operative extremity unless instructed otherwise. Use a walker or other assistive device to ambulate. 2. Leave surgical dressing in place. If your dressing becomes saturated with blood, there is drainage, or the dressing becomes loose please contact the office. 3. It is okay to shower with your surgical dressing, but do not submerge in water (no hot tubs, bath's, swimming etc.) 4. Anticoagulation per internal medicine. 5. While taking [place] or Percocet for pain take a stool softener (Ex: Colace) and drink lots of water. 6. Keep all follow-up appointments as scheduled. You will usually be seen in 1-2 weeks following surgery. 7. Please contact the office with any questions or concerns [phone] Discharge Disposition: TRANSFER TO SNF/ECF
[2025-01-19 11:25] VITALS: BMI 26.9
[2025-01-19 12:06] LABS: Glucose,Whole Blood 119 mg/dL (70-110)
--- NOTE | 2025-01-19 12:20 | P.PN ---
Subjective Progress Note Date: 01/19/25 Patient reports feeling well today overall. Denies any new pain or symptoms. Mentions he has been out of bed once or twice to sit in his chair but has not been walking around the room. Has been using a bedpan. Objective - Vital Signs Vital signs: Vital Signs Temp 97.6 F 01/19/25 01:25 Pulse 62 01/19/25 01:25 Resp 18 01/19/25 01:25 BP 102/60 01/19/25 01:25 Pulse Ox 98 01/19/25 01:25 FiO2 Intake & Output 01/18/25 01/18/25 01/19/25 06:59 18:59 06:59 Output Total 4118 893 9199 Balance -1573 625 -1600 Weight 90 kg Output: Urine 039 424 0141 Straight 425 Post Void Residual 648 Other: Voiding Method Urinal Urinal # Bowel Movements 1 1 - Exam General: No acute distress. Lying back in bed. Derm: warm, dry Head: atraumatic, normocephalic, symmetric Mouth: Pharyngeal erythema noted. Mucous membranes appeared moist on exam. Cardiovascular: Irregularly irregular rhythm. No murmur. Edema to bilateral lower extremities has notably improved. Lungs: Mild Rales noted to lungs bilaterally. Abdominal: Nondistended. Nontender to palpation in all 4 quadrants Ext: no gross muscle atrophy. no contractures Neuro: no focal neuro deficits Psych: Alert and oriented - Labs CBC & Chem 7: 01/19/25 06:05 01/19/25 06:05 Labs: Abnormal Lab Results - Last 24 Hours (Table) 01/18/25 01/18/25 01/18/25 Range/Units 06:09 06:09 12:10 RBC (4.40-5.60) 10*6/uL Hgb (13.0-17.0) g/dL Hct (39.6-50.0) % MCH (27.0-32.0) pg Lymphocytes # (0.90-5.00) 10*3/uL PT 14.4 H (10.0-12.5) sec INR 1.4 H (<1.2) APTT 31.5 H (22.0-30.0) sec Sodium 133 L (137-145) mmol/L BUN 33 H (9-20) mg/dL Glucose 146 H (74-99) mg/dL POC Glucose (mg/dL) 145 H (70-110) mg/dL Calcium 7.9 L (8.4-10.2) mg/dL 01/18/25 01/19/25 01/19/25 Range/Units 20:02 06:05 06:05 RBC 3.45 L (4.40-5.60) 10*6/uL Hgb 11.3 L (13.0-17.0) g/dL Hct 32.2 L (39.6-50.0) % MCH 32.8 H (27.0-32.0) pg Lymphocytes # 0.71 L (0.90-5.00) 10*3/uL PT (10.0-12.5) sec INR (<1.2) APTT (22.0-30.0) sec Sodium 133 L (137-145) mmol/L BUN 36 H (9-20) mg/dL Glucose 115 H (74-99) mg/dL POC Glucose (mg/dL) 115 H (70-110) mg/dL Calcium 8.1 L (8.4-10.2) mg/dL 01/19/25 Range/Units 06:05 RBC (4.40-5.60) 10*6/uL Hgb (13.0-17.0) g/dL Hct (39.6-50.0) % MCH (27.0-32.0) pg Lymphocytes # (0.90-5.00) 10*3/uL PT (10.0-12.5) sec INR (<1.2) APTT (22.0-30.0) sec Sodium (137-145) mmol/L BUN (9-20) mg/dL Glucose (74-99) mg/dL POC Glucose (mg/dL) 133 H (70-110) mg/dL Calcium (8.4-10.2) mg/dL Assessment and Plan Assessment: Relevant labs reviewed today: WBC: 7.3, Hgb: 11.3, PT: 14.3, INR: 1.4, APTT: 27.8, NA: 133, K: 3.8, creatinine: 0.93, Ca: 8.1 Assessment/plan: 1. Acute hypoxic respiratory failure secondary to acute on chronic diastolic heart failure Permanent atrial fibrillation #post-op day 4 -Patient can be discharged to [facility] from medical standpoint -Continue Eliquis 5 mg p.o. twice daily -Lasix 40 mg p.o. twice daily -Patient was able to be weaned to room air -Encourage continued use of incentive spirometer 2. Hypervolemic hyponatremia -Patient to follow-up with PCP outpatient 3. Mild Hypocalcemia, asymptomatic - Oral 500 mg TID calcium carbonate ordered 3.CAD/PAD/hypertension/hyperlipidemia -Continue patient's atorvastatin, metoprolol, primidone 4. Right hip fracture s/p direct anterior hip hemiarthroplasty -Pain management per primary team -They recommend weightbearing as tolerated and using a walker to ambulate -PT recommending subacute rehab DVT ppx: Eliquis 5 mg PO BID as above for afib Code Status: Full code Patient is otherwise medically optimized for discharge Thank you for allowing us to participate in the care of this pleasant patient. Do not hesitate to contact us with questions. Someone can be reached from the [facility] hospitalist group all hours of the day at [phone] or via [employer]. I have seen and evaluated the patient today. Discussed with the resident and agree with the residents finding and plan as documented in the resident's note. Changes highlighted in blue font.
--- NOTE | 2025-01-19 12:22 | P.PN ---
Subjective HISTORY OF PRESENT ILLNESS: 84-year-old with PMH of CAD status post PCI hypertension dyslipidemia PAD permanent atrial fibrillation on warfarin therapy. Known to Dr. Reyes He had a mechanical fall at home and thereafter he severe right hip fracture. For this he underwent surgery today. Cardiology was consulted for perioperative and postoperative management along with his prior cardiovascular history. He denies any symptoms of chest pain chest pressure palpitation lightheadedness dizziness. She denies any feeling of dizziness lately. Denies any symptoms of syncope or passing out. Labs hemoglobin 12.8, BUN 19, creatinine 1, A1c 5.9, NT-proBNP 8000 EKG shows atrial fibrillation, heart rate 58 bpm, right bundle branch block Chest x-ray from admission does not show significant signs of consolidation or congestion. Home medications lisinopril 10, warfarin, Lasix 20 daily, simvastatin 20 daily, metoprolol 12.5 mg twice daily, 01/16/2025 Patient examined this morning at the bedside. He denies chest pain or pressure. He reports mild shortness of breath. He was on 5 L nasal cannula this morning, per nursing she was able to wean it to 3 L nasal cannula. proBNP is 11,300. 01/17/2025 Patient examined this morning at bedside. Patient states his breathing has significantly improved. He denies any chest pain or pressure. Vital signs are stable. Patient is still requiring 3 L nasal cannula to maintain oxygen saturations greater than 92%. 01/18/2025 Patient examined this morning at bedside. Patient is working with physical therapy and is sitting up in the chair. He denies any chest pain or pressure. He reports improvement in his shortness of breath. He remains on IV Lasix. Chest x-ray yesterday completed revealing cardiomegaly and ongoing interstitial densities. Correlate for CHF with pulmonary vascular congestion. Developing bibasilar airspace disease either related to patchy pulmonary edema versus pneumonitis. 01/19/2025 Patient examined this morning at bedside. Patient currently denies chest pain or pressure. He currently denies shortness of breath. He is still requiring 4 L nasal cannula. He has been transition to oral diuretics per internal medicine. PHYSICAL EXAM: VITAL SIGNS: Reviewed. GENERAL: Well-developed in no acute distress. NECK: Supple. No JVD or thyromegaly LUNGS: Respirations even and unlabored. Lungs essentially clear to auscultation bilaterally. HEART: Irregular rate and rhythm. S1 and S2 heard. EXTREMITIES: Normal range of motion. No clubbing or cyanosis. Peripheral pu lses intact. No lower extremity edema ASSESSMENT: Mechanical fall fall Right hip fracture status post hemiarthroplasty 01/15/2025 Acute hypoxic respiratory failure requiring supplemental oxygen Acute on chronic heart failure, type unknown, no echo available in EMR Coronary artery disease with previous stenting Hypertension Hyperlipidemia Persistent atrial fibrillation Peripheral arterial disease History of COPD PLAN: Patient has been transition to oral Lasix Daily weights, accurate intake and output, monitoring of kidney function Continue anticoagulation with Eliquis Continue additional cardiac medications Wean oxygen as tolerated Encourage use of incentive spirometer No further inpatient recommendations from a cardiac standpoint Will sign off. Please reconsult if needed. Nurse practitioner note has been reviewed by physician. Signing provider agrees with the documented findings, assessment, and plan of care documented by FIELD AUDITOR as a scribe. Objective - Vital Signs Vital signs: Vital Signs Temp 98.1 F 01/19/25 07:51 Pulse 86 01/19/25 07:51 Resp 17 01/19/25 07:51 BP 105/62 01/19/25 07:51 Pulse Ox 92 L 01/19/25 11:26 FiO2 Intake & Output 01/18/25 01/19/25 01/19/25 18:59 06:59 18:59 Output Total 625 1600 670 Balance -978 -1600 -158 Weight 90 kg 90 kg Output: Urine 625 1600 670 Straight 425 Other: Voiding Method Urinal # Bowel Movements 1 - Labs CBC & Chem 7: 01/19/25 06:05 01/19/25 06:05 Labs: Abnormal Lab Results - Last 24 Hours (Table) 01/18/25 01/19/25 01/19/25 Range/Units 20:02 06:05 06:05 RBC 3.45 L (4.40-5.60) 10*6/uL Hgb 11.3 L (13.0-17.0) g/dL Hct 32.2 L (39.6-50.0) % MCH 32.8 H (27.0-32.0) pg Lymphocytes # 0.71 L (0.90-5.00) 10*3/uL PT 14.3 H (10.0-12.5) sec INR 1.4 H (<1.2) Sodium (137-145) mmol/L BUN (9-20) mg/dL Glucose (74-99) mg/dL POC Glucose (mg/dL) 115 H (70-110) mg/dL Calcium (8.4-10.2) mg/dL 01/19/25 01/19/25 01/19/25 Range/Units 06:05 06:05 12:05 RBC (4.40-5.60) 10*6/uL Hgb (13.0-17.0) g/dL Hct (39.6-50.0) % MCH (27.0-32.0) pg Lymphocytes # (0.90-5.00) 10*3/uL PT (10.0-12.5) sec INR (<1.2) Sodium 133 L (137-145) mmol/L BUN 36 H (9-20) mg/dL Glucose 115 H (74-99) mg/dL POC Glucose (mg/dL) 133 H 119 H (70-110) mg/dL Calcium 8.1 L (8.4-10.2) mg/dL
[2025-01-19] MEDS ORDERED: FUROSEMIDE 40 MG TAB PO SCH (16:00)
== END 2025-01-19 12:49 | DRG 521 ==
LOC: EC 00:32 → 4SSUR 04:05
PROVIDERS: ADMIT Orthopaedic Surgery; ATTEND Orthopaedic Surgery
PROC: 0SRR019 Replacement of Right Hip Joint, Femoral Surface with Metal Synthetic Substitute, Cemented, Open Approach (ICD-10-PCS; principal; 2025-01-15 09:00)
DX: S72.011A Unspecified intracapsular fracture of right femur, initial encounter for closed fracture (principal); I50.33 Acute on chronic diastolic (congestive) heart failure; J96.01 Acute respiratory failure with hypoxia; I11.0 Hypertensive heart disease with heart failure; J44.89 Other specified chronic obstructive pulmonary disease; I73.9 Peripheral vascular disease, unspecified; I48.21 Permanent atrial fibrillation; E87.1 Hypo-osmolality and hyponatremia; E83.51 Hypocalcemia; D72.829 Elevated white blood cell count, unspecified; S50.311A Abrasion of right elbow, initial encounter; S60.512A Abrasion of left hand, initial encounter; S60.511A Abrasion of right hand, initial encounter; S50.312A Abrasion of left elbow, initial encounter; N40.0 Benign prostatic hyperplasia without lower urinary tract symptoms; W01.0XXA Fall on same level from slipping, tripping and stumbling without subsequent striking against object, initial encounter; Y93.01 Activity, walking, marching and hiking; I45.10 Unspecified right bundle-branch block; I25.10 Atherosclerotic heart disease of native coronary artery without angina pectoris; E78.5 Hyperlipidemia, unspecified; Z79.01 Long term (current) use of anticoagulants; Z79.899 Other long term (current) drug therapy; Z87.891 Personal history of nicotine dependence; Z95.5 Presence of coronary angioplasty implant and graft
CPT/HCPCS: 36415; 71045; 73501; 80048; 80053; 83036; 83735; 83880; 84295; 85025; 85610; 85730; 94760; 96372; 99285